=== PATIENT | male | born 1960 | race Hispanic/Latino ===

== ENCOUNTER 2020-09-14 14:27 | Inpatient (IN) | payer MEDICARE ==
[2020-09-14 15:18] LABS: Hemoglobin 6.1 g/dL (14.0-18.0); Mean Corpuscular Volume 55.2 fL (78.0-98.0); Red Blood Cell (RBC) Count 3.99 mill/uL (4.70-6.10); White Blood Cell (WBC) Count 9.5 thou/uL (4.8-10.8)
[2020-09-14 15:19] LABS: #Basophils 0.1 thou/uL (0.0-0.2); #Eosinphils 0.4 thou/uL (0.0-0.7); #Lymphocytes 1.8 thou/uL (1.20-3.40); #Monocytes 0.6 thou/uL (0.11-0.59); #Neutrophils 6.6 thou/uL (1.40-6.50); %Eosinophils 4.2 % (0.0-10.0); %Monocytes 6.3 % (0.0-10.0); %Neutrophils 69.4 % (42.0-75.0); Mean Corpuscular HGB CONC 27.9 g/dL (32.0-36.0); Mean Corpuscular Hemoglobin 15.4 pg (27.0-31.0); Mean Platelet Volume 6.4 fL (7.4-10.4); Platelet Count 551 thou/uL (130-400); RBC Distribution Width 21.2 % (11.5-14.5)
[2020-09-14 15:29] LABS: INR-International Normal Ratio 0.9; Prothrombin Time 12.7 sec (12.0-14.7)
[2020-09-14 15:30] LABS: PTT 29.7 sec (22.9-36.1)
[2020-09-14 15:35] LABS: ALT (SGPT) Less than 7 U/L (8-55); AST (SGOT) 12 U/L (5-34); Albumin 4.1 g/dL (3.5-5.0); Alkaline Phosphatase 99 U/L (40-110); Anion Gap 11 mmol/L (10-20); BUN (Urea Nitrogen) 12 mg/dL (8.4-25.7); Bilirubin, Total 0.6 mg/dL (0.2-1.2); Calc. Creatinine Clearance 0 mL/min (70-130); Calcium 9.1 mg/dL (7.8-10.44); Carbon Dioxide 26 mmol/L (22-29); Chloride 104 mmol/L (98-107); Globulin 3.8 g/dL (2.4-3.5); Glucose 146 mg/dL (70-105); Iron 10 ug/dL (65-175); Iron Binding Capacity, Total 444 mcg/dL (261-462); Potassium 4.1 mmol/L (3.5-5.1); Protein, Total 7.9 g/dL (6.0-8.3); Sodium 137 mmol/L (136-145)
[2020-09-14 15:40] LABS: Anisocytosis MODERATE=16-30 cells (100X) (0-5/hpf); Elliptocytes SLIGHT = 2-5 cells (100X) (0-1/hpf); Hypochromia MODERATE=16-30 cells (100X) (0-5/hpf); MDiff Complete? YES; Microcytosis MODERATE=15-30 cells (100X) (0-5/hpf); Ovalocytes MODERATE= 6-15 cells (100X) (0-1/hpf); Platelet Morphology Comment Appears Increased; Polychromasia MODERATE = 3-4 cells (100X) (0-2/hpf); Reflex for Review?? YES; Schistocytes SLIGHT = 2-5 cells (100X) (0-1/hpf); Target Cells SLIGHT = 2-5 cells (100X) (0-1/hpf); Tear Drops SLIGHT = 2-5 cells (100X) (0-1/hpf)
[2020-09-14] MEDS ORDERED: Acetaminophen 325 MG TAB PO PRN (18:07)
--- NOTE | 2020-09-14 19:32 | PDOC.HHP ---
Hospitalist HPI - History of Present Illness History of Present Illness: ADMISSION DATE: 09/14/2020 TIME OF ASSESSMENT: 1700 PRIMARY CARE PHYSICIAN: Petrona Narayanan CHIEF COMPLAINT: Low hemoglobin HPI: Patient is a 60-year-old male with past medical history significant for hemorrhoids, hypertension, diabetes. He presents to the ER today after it was discovered that he had a low hemoglobin during his annual physical with his physician. He does state that he has had bright red blood in his BMs lately. Patient also does state that he has felt a little weak and short of breath at times over the past few days. He denies any chest pain, melena, abdominal discomfort, fever, contact with sick persons. ED COURSE: Vital Signs: Blood pressure 115/65, pulse 85, respiratory 16, temp 98.6 oral, O2 saturation 100% on room air Today patient had lab work completed in the ER. He had no medications administered in the ER but he did start his blood transfusions. PAST MEDICAL HISTORY: CVA, diabetes type 2, hypertension, hemorrhoid, anxiety PAST SURGICAL HISTORY: None SOCIAL HISTORY: Patient lives at home with his mother. He denies any alcohol, tobacco, drug use. FAMILY HISTORY: Unknown ALLERGIES: No known allergies CURRENT MEDICATIONS: Metformin 1000 mg once a day Keppra 750 mg once a day Vitamin D3 Lisinopril 5 mg once a day Aspirin 81 mg once a day Gabapentin 300 mg 3 tabs, 1 in a.m. and 2 at bedtime Pantoprazole 40 mg daily Hospitalist ROS - Review of Systems Constitutional: reports: weakness Respiratory: reports: shortness of breath Gastrointestinal: reports: hematochezia All other systems reviewed; all pertinent +/- noted in HPI/Subj - Exam General Appearance: NAD, awake alert Heart: RRR, no murmur, no gallops, no rubs, normal peripheral pulses Respiratory: CTAB, no wheezes, no rales, no ronchi, normal chest expansion Gastrointestinal: soft, non-tender, non-distended, normal bowel sounds, no palpable masses Extremities: 1+ LE edema Hospitalist Results - Labs Result Diagrams: 09/14/20 15:03 09/14/20 15:03 Lab results: WBC 9.5 thou/uL (4.8-10.8) 09/14/20 15:03 Hgb 6.1 g/dL (14.0-18.0) L 09/14/20 15:03 Hct 22.0 % (42.0-52.0) L 09/14/20 15:03 MCV 55.2 fL (78.0-98.0) L 09/14/20 15:03 Plt Count 551 thou/uL (130-400) H 09/14/20 15:03 Neutrophils % 69.4 % (42.0-75.0) 09/14/20 15:03 Sodium 137 mmol/L (136-145) 09/14/20 15:03 Potassium 4.1 mmol/L (3.5-5.1) 09/14/20 15:03 Chloride 104 mmol/L (98-107) 09/14/20 15:03 Carbon Dioxide 26 mmol/L (22-29) 09/14/20 15:03 BUN 12 mg/dL (8.4-25.7) 09/14/20 15:03 Creatinine 0.83 mg/dL (0.7-1.3) 09/14/20 15:03 Glucose 146 mg/dL (70-105) H 09/14/20 15:03 Calcium 9.1 mg/dL (7.8-10.44) 09/14/20 15:03 Total Bilirubin 0.6 mg/dL (0.2-1.2) 09/14/20 15:03 AST 12 U/L (5-34) 09/14/20 15:03 ALT Less than 7 U/L (8-55) L 09/14/20 15:03 Alkaline Phosphatase 99 U/L (40-110) 09/14/20 15:03 Serum Total Protein 7.9 g/dL (6.0-8.3) 09/14/20 15:03 Albumin 4.1 g/dL (3.5-5.0) 09/14/20 15:03 Laboratory Tests 09/14/20 09/14/20 15:03 15:03 Iron 10 L TIBC 444 Ferritin 3.20 L Hospitalist H&P A/P - Plan Plan: Symptomatic anemia Transfuse 2 units PRBC GI consult in a.m.patient stated he had bright red blood in stools N.p.o. after midnight Hold ASA Diabetes mellitus type 2 Monitor Accu-Cheks AC at bedtime Mild sliding scale insulin Hypertension Restart home medications Monitor vital signs every 4 CODE STATUS: Full Surrogate decision-maker is his sister, Claudia
[2020-09-14] MEDS ORDERED: Dextrose 5% in Water 1,000 ML IV PRN (19:42)
[2020-09-14] MEDS ORDERED: Dextrose 50% Abboject 50 ML SYRINGE SLOW IVP PRN (19:42)
[2020-09-14 20:54] VITALS: BMI 25.7
[2020-09-15 00:59] LABS: Bacteria/HPF None Seen HPF (None Seen); Bilirubin Negative (Negative); Blood, Urine Negative (Negative); Clarity Clear (Clear); Glucose, Urine (Dipstick) Normal (Negative); Ketone, Urine Negative (Negative); Leukocyte Negative Leu/uL (Negative); Nitrite Negative (Negative); Protein, Urine (Dipstick) Negative (Neg-Trace); RBC/HPF 0-3 HPF (0-3); Specific Gravity, Urine 1.011 (1.002-1.036); Squamous Epithelial None Seen HPF (0-3); WBC/HPF 0-3 HPF (0-3); pH, Urine 6.5 (5.0-9.0)
[2020-09-15 03:37] LABS: SARS-CoV-2 MS2 Positive; SARS-CoV-2 N Gene Negative; SARS-CoV-2 S Gene Negative; SARS-CoV-2 by NAA Not Detected (NotDetected); SARS-CoV-2 orf1ab Negative
[2020-09-15 04:35] LABS: Anion Gap 13 mmol/L (10-20); BUN (Urea Nitrogen) 8 mg/dL (8.4-25.7); Calc. Creatinine Clearance 112 mL/min (70-130); Calcium 8.4 mg/dL (7.8-10.44); Carbon Dioxide 21 mmol/L (22-29); Chloride 105 mmol/L (98-107); Glucose 281 mg/dL (70-105); Potassium 4.3 mmol/L (3.5-5.1); Sodium 135 mmol/L (136-145)
[2020-09-15] MEDS: Pantoprazole 40 MG VIAL IVP SCH (08:25)
[2020-09-15 09:04] LABS: #Eosinphils 0.3 thou/uL (0.0-0.7); #Lymphocytes 1.4 thou/uL (1.20-3.40); #Monocytes 0.7 thou/uL (0.11-0.59); #Neutrophils 4.9 thou/uL (1.40-6.50); %Basophils 0.6 % (0.0-1.0); %Eosinophils 4.5 % (0.0-10.0); %Lymphocytes 19.4 % (21.0-51.0); %Monocytes 9.4 % (0.0-10.0); %Neutrophils 66.2 % (42.0-75.0); Anisocytosis MARKED = >30 cells (100X) (0-5/hpf); Hemoglobin 7.7 g/dL (14.0-18.0); Hypochromia MODERATE=16-30 cells (100X) (0-5/hpf); MDiff Complete? YES; Mean Corpuscular HGB CONC 28.5 g/dL (32.0-36.0); Mean Corpuscular Hemoglobin 18.1 pg (27.0-31.0); Mean Corpuscular Volume 63.8 fL (78.0-98.0); Mean Platelet Volume 5.6 fL (7.4-10.4); Microcytosis MODERATE=15-30 cells (100X) (0-5/hpf); Ovalocytes SLIGHT = 2-5 cells (100X) (0-1/hpf); Platelet Count 459 thou/uL (130-400); Poikilocytosis MODERATE=16-30 cells (100X) (0-5/hpf); RBC Distribution Width 30.3 % (11.5-14.5); Red Blood Cell (RBC) Count 4.23 mill/uL (4.70-6.10); White Blood Cell (WBC) Count 7.4 thou/uL (4.8-10.8)
[2020-09-15] MEDS: Sodium Chloride 0.9% 1,000 ML IV SCH ×2 (13:39→19:31)
--- NOTE | 2020-09-15 14:00 | PDOC.HOSPP ---
- Subjective Encounter Date: 09/15/20 (f/u sx anemia) Encounter Time: 13:58 Subjective: Pt c/o feeling hungry. He doesnt notice much difference after 2 units prbc. He denies any current problems. For about 3 months he has noticed blood in his stool and some abd pain. He fell recently and injured his left elbow - Mom reports it drains purulent fluid with last drainage 2 days ago. - Objective Vital Signs & Weight: Vital Signs (12 hours) Temp Pulse Resp BP BP BP Pulse Ox 09/15/20 11:02 97.5 F L 95 18 131/77 98 09/15/20 08:00 97.7 F 77 18 131/70 99 09/15/20 03:41 99.3 F 77 16 115/62 96 Weight Weight 164 lb I&O: 09/14/20 09/15/20 09/16/20 06:59 06:59 06:59 Intake Total 590 Output Total 500 Balance 90 Result Diagrams: 09/15/20 06:20 09/15/20 03:45 Additional Labs: Accuchecks 09/14/20 21:14 POC Glucose 136 H Hospitalist ROS - Medication Medications: Active Medications Generic Name Dose Route Start Last Admin Trade Name Freq PRN Reason Stop Dose Admin Sodium Chloride 1,000 mls @ 100 mls/hr 09/15/20 12:00 09/15/20 13:39 Normal Saline 0.9% IV 1,000 mls .Q10H GUS Administration Pantoprazole Sodium 40 mg 09/15/20 09:00 09/15/20 08:25 Pantoprazole 40 Mg Vial IVP 40 mg DAILY GUS Administration Sodium Chloride 10 ml 09/14/20 18:07 09/15/20 13:40 Flush - Normal Saline 10 Ml Syringe IVF 10 ml PRN PRN Administration Saline Flush - Exam General Appearance: NAD Heart: RRR, no murmur Respiratory: CTAB, no wheezes, no rales, no ronchi Gastrointestinal: soft, non-tender, non-distended, normal bowel sounds Extremities: no cyanosis, no clubbing Extremities - other findings: fluctuant protuberance left elbow Psychiatric: normal affect Hosp A/P (1) Symptomatic anemia Code(s): D64.9 - ANEMIA, UNSPECIFIED Status: Acute (2) GI bleed Code(s): K92.2 - GASTROINTESTINAL HEMORRHAGE, UNSPECIFIED Status: Suspected Qualifiers: GI bleed type/associated pathology: unspecified gastrointestinal hemorrhage type Qualified Code(s): K92.2 - Gastrointestinal hemorrhage, unspecified (3) Seizure disorder Code(s): G40.909 - EPILEPSY, UNSP, NOT INTRACTABLE, WITHOUT STATUS EPILEPTICUS Status: Chronic (4) Diabetes mellitus Code(s): E11.9 - TYPE 2 DIABETES MELLITUS WITHOUT COMPLICATIONS Status: Chronic (5) Swelling of left elbow Code(s): M25.422 - EFFUSION, LEFT ELBOW Status: Acute (6) Chronic pain Code(s): G89.29 - OTHER CHRONIC PAIN Status: Chronic Qualifiers: Chronic pain type: other chronic pain Qualified Code(s): G89.29 - Other chronic pain - Plan Concern of GI bleed - s/p 2 units prbc - GI consult Elbow swelling - check XR - check soft tissue US - does not appear acutely infected - hold abx for now Sx anemia - no indication for further blood at this time - recheck in AM. DM - controlled - hold metformin Seizure d/o - resume keppra Chronic pain - resume gabapentin dvt prophy - ambulatory gi prophy - continue IV protonix code status full reviewed plan of care with patient/Mom, no questions or further needs at end of eval as the patient requires an additional night in the hospital - EGD and colonoscopy tomorrow - will change to inpatient status as pt meets medicare criteria. Addendum - reviewed XR and no acute change. Reviewed US and complex fluid collection - eval for abscess. Will start IV rocephin and place consult for Ortho evaluation tomorrow given location.
--- NOTE | 2020-09-15 14:35 | CON ---
DATE OF CONSULTATION: 09/15/2020 CHIEF COMPLAINT: Anemia and blood in the stool. HISTORY OF PRESENT ILLNESS: Mr. Barnes is a 60-year-old man who has noticed red blood mixed with formed stool over the last several months. He did not tell his family about this to alert them to it. He went in for routine checkup at [facility], was found to have severe anemia and he was sent on to the emergency room for further care. His mom reports that he has had a decreased appetite for the last month and just picks his food and more. He has looked kind of pale over the last couple of months. He has had no nausea or vomiting. Sometimes gets some cramping pain in the right lower to periumbilical abdominal area before bowel movements, but that is not persistent, only lasts for a few minutes. He has lost 20 pounds over the last year. PAST MEDICAL HISTORY: Seizure disorder, stroke, diabetes mellitus type 2, hypertension. PAST SURGICAL HISTORY: Negative. FAMILY HISTORY: Negative for GI malignancy. His father had testicular cancer. SOCIAL HISTORY: No alcohol, tobacco, or drugs. He lives at home with his mother. ALLERGIES: NO KNOWN DRUG ALLERGIES. MEDICATIONS: Prior to admission include: 1. Metformin. 2. Keppra. 3. Vitamin D. 4. Lisinopril. 5. Aspirin. 6. Gabapentin. REVIEW OF SYSTEMS: Negative x10 systems reviewed except as stated in the history of present illness. PHYSICAL EXAMINATION: VITAL SIGNS: Temperature 97.5, pulse 95, blood pressure 131/77. GENERAL: He is in no acute distress. Alert and oriented x3. LUNGS: Clear to auscultation bilaterally. HEART: Regular rate and rhythm without murmur. ABDOMEN: Soft, nontender, and nondistended. Bowel sounds are present. EXTREMITIES: No lower extremity edema. Cranial nerves are grossly intact. LABORATORY DATA: White blood cell count 7.4, hemoglobin is 7.7 after two units of transfusion. His hemoglobin prior to that was 6.1. His MCV is 55, platelet count 459. INR 0.9. Creatinine 0.75. Ferritin is 3. IMPRESSION: 1. Iron deficiency anemia. 2. Hematochezia. 3. Poor appetite and 20-pound weight loss. RECOMMENDATIONS: EGD and colonoscopy tomorrow. Job ID: [id number]
[2020-09-15] MEDS ORDERED: GoLYTELY 4,000 ml Bottle PO SCH (16:00)
--- NOTE | 2020-09-15 16:17 | ULT ---
Exam: Limited soft tissue ultrasound HISTORY: Erythema and swelling of the left elbow. Comparison none TECHNIQUE: Targeted sonographic imaging of the region of concern was performed left elbow FINDINGS: There is heterogeneous echotexture in the soft tissues. Collection measures 1.9 x 0.6 x 2.0 cm. There are slightly thickened septi present. Complex/infected fluid collection is suspected. There appears be overlying soft tissue swelling. IMPRESSION: Probable complex fluid collection involving the soft tissues at the level of the left elb ow. Correlate clinically for abscess.
[2020-09-15] MEDS: Ferrous Sulfate 325 MG TAB PO SCH ×2 (16:50→17:02)
--- NOTE | 2020-09-15 17:06 | RAD ---
Exam:Left elbow 4 views HISTORY: Soft tissue swelling. Fall. Pain. COMPARISON: None FINDINGS: Targeted sonographic imaging of the left elbow soft tissues was performed. Refer to separat e report for further detail Joint spaces are preserved. No joint effusion. No fracture or malalignment. IMPRESSION: 1. No joint effusion. No fracture. 2. Soft tissue swelling. Refer to recent ultrasound for further detail.
[2020-09-15] MEDS: HumaLOG 300 UNITS/3 ML VIAL SC PRN (18:17)
[2020-09-15] MEDS: Gabapentin 300 MG CAP PO SCH (19:31)
[2020-09-15] MEDS: levETIRAcetam 500 MG TAB PO SCH (19:31)
[2020-09-15] MEDS: Rosuvastatin 5 MG TAB PO SCH (19:36)
[2020-09-15] MEDS: cefTRIAXone\\ROCEPHIN 2 GM in Sodium Chloride 0.9% 100 ML IVPB SCH (20:36)
[2020-09-16 04:34] LABS: Anion Gap 14 mmol/L (10-20); BUN (Urea Nitrogen) 6 mg/dL (8.4-25.7); Calc. Creatinine Clearance 120 mL/min (70-130); Calcium 8.5 mg/dL (7.8-10.44); Carbon Dioxide 23 mmol/L (22-29); Chloride 106 mmol/L (98-107); Glucose 111 mg/dL (70-105); Potassium 4.3 mmol/L (3.5-5.1); Sodium 139 mmol/L (136-145)
[2020-09-16 04:42] LABS: #Eosinphils 0.4 thou/uL (0.0-0.7); #Lymphocytes 1.9 thou/uL (1.20-3.40); #Monocytes 0.8 thou/uL (0.11-0.59); #Neutrophils 5.5 thou/uL (1.40-6.50); %Basophils 0.4 % (0.0-1.0); %Eosinophils 4.7 % (0.0-10.0); %Lymphocytes 21.6 % (21.0-51.0); %Monocytes 8.9 % (0.0-10.0); %Neutrophils 64.3 % (42.0-75.0); Hemoglobin 7.3 g/dL (14.0-18.0); MDiff Complete? YES; Mean Corpuscular HGB CONC 28.5 g/dL (32.0-36.0); Mean Corpuscular Hemoglobin 18.1 pg (27.0-31.0); Mean Corpuscular Volume 63.6 fL (78.0-98.0); Mean Platelet Volume 6.3 fL (7.4-10.4); Platelet Count 420 thou/uL (130-400); RBC Distribution Width 30.4 % (11.5-14.5); Red Blood Cell (RBC) Count 4.05 mill/uL (4.70-6.10); White Blood Cell (WBC) Count 8.6 thou/uL (4.8-10.8)
[2020-09-16 04:43] LABS: Anisocytosis MODERATE=16-30 cells (100X) (0-5/hpf); Elliptocytes SLIGHT = 2-5 cells (100X) (0-1/hpf); Hypochromia MODERATE=16-30 cells (100X) (0-5/hpf); Large Platelets SLIGHT; Microcytosis MODERATE=15-30 cells (100X) (0-5/hpf); Tear Drops SLIGHT = 2-5 cells (100X) (0-1/hpf)
[2020-09-16] MEDS ORDERED: PROPOFOL 200 MG/20 ML VIAL ONE (09:21)
[2020-09-16] MEDS ORDERED: Lidocaine 1% PF 5 ML VIAL ONE (09:21)
--- NOTE | 2020-09-16 09:24 | OP ---
DATE OF PROCEDURE: 09/16/2020 PROCEDURE PERFORMED: Esophagogastroduodenoscopy with biopsy and colonoscopy with biopsy. PREOPERATIVE DIAGNOSES: Iron deficiency anemia, hematochezia, and weight loss. DESCRIPTION OF PROCEDURE: Informed consent was obtained from the patient. He was sedated with total intravenous anesthesia. The bite block was placed and the endoscope was advanced easily to the second portion of the duodenum and retroflexion was performed in the stomach. The esophagus was normal. The GE junction was normal. The stomach had mild erythematous gastritis in the antrum, which was biopsied to rule out Helicobacter pylori. Retroflexed views in the stomach were normal. The first and second portions of the duodenum were normal overall. They were slightly edematous appearing. Biopsies were obtained to rule out celiac disease. The patient was turned around. Rectal exam was performed and was normal. Preparation quality was adequate. The colonoscope was advanced to the cecum, where the ileocecal valve and appendiceal orifice were clearly identified. There was a large mass in the ascending colon. This was only one-half circumferential, however, it extended several centimeters. Multiple biopsies were obtained. The remainder of the colonic mucosa was normal. Retroflexed views in the rectum were normal. IMPRESSION: 1. Erythematous gastritis, biopsied to rule out Helicobacter pylori. 2. Otherwise normal EGD. Duodenal biopsies taken to rule out celiac disease. 3. Ascending colon mass consistent with malignant tumor. Biopsies obtained. 4. Otherwise normal colonoscopy. RECOMMENDATIONS: 1. Await histopathology. 2. Surgical consultation for right hemicolectomy. 3. Outpatient Oncology referral. 4. Repeat colonoscopy in [address] scan of the chest, abdomen, and pelvis. 6. Check CEA. Job ID: [id number]
[2020-09-16] MEDS: levETIRAcetam 500 MG TAB PO SCH ×2 (09:42→20:04)
[2020-09-16] MEDS: DULoxetine 60 MG CAP PO SCH (09:43)
[2020-09-16] MEDS: Ferrous Sulfate 325 MG TAB PO SCH ×2 (09:43→17:31)
[2020-09-16] MEDS: Gabapentin 300 MG CAP PO SCH ×2 (09:43→20:05)
[2020-09-16] MEDS: Pantoprazole 40 MG VIAL IVP SCH (09:43)
[2020-09-16] MEDS ORDERED: Iopamidol-370 76% 500 ML 1 ML ONE (11:44)
--- NOTE | 2020-09-16 12:57 | CON ---
DATE OF CONSULTATION: 09/16/2020 HISTORY OF PRESENT ILLNESS: Mr. Barnes is a 60-year-old male with past medical history of hypertension, diabetes, history of a CVA, anxiety. The patient is currently being under work by Dr. Roe Dean for upper versus lower GI bleed. The patient was noted to have bright red blood in his bowel movements. The patient also was complaining of left elbow pain, which he states its onset about 2 weeks, some swelling and pain over that time. PAST MEDICAL HISTORY: CVA, diabetes, hypertension, hemorrhoids, anxiety. PAST SURGICAL HISTORY: Now colonoscopy/EGD. MEDICATIONS: 1. Metformin. 2. Keppra. 3. Vitamin D. 4. Lisinopril. 5. Aspirin. 6. Gabapentin. 7. Pantoprazole. ALLERGIES: NO KNOWN DRUG ALLERGIES. SOCIAL HISTORY: The patient lives at home with his mother. Denies illicit drug use. REVIEW OF SYSTEMS: Negative for 10-point review except for positive blood per rectum, shortness of breath, and weakness. Otherwise, negative. PHYSICAL EXAMINATION: VITAL SIGNS: Today, temperature 97.8, pulse 92, respirations 18, oxygen saturation 100% on room air, blood pressure 139/83. GENERAL: Alert and oriented male, in no acute distress, resting comfortably in bed. EXTREMITIES: Left lower extremity shows some erythema over the elbow with tenderness to palpation, a boggy bursa without obvious pointing abscess or fluid collection. Full range of motion. Stable joint. No large effusion. Neurovascularly intact in left upper extremity. LABORATORY DATA: The patient's white count is currently 8.6. He is anemic at 7.3 and 25.7. He is COVID negative. ESR and CRP are pending. Elbow x-ray showed no acute fracture. Ultrasound of the left elbow shows complex fluid collection at the level of the elbow. IMPRESSION: Left olecranon bursitis versus septic bursitis. ASSESSMENT AND PLAN: Recommend warm compresses, range of motion, IV antibiotics, will be transitioned to oral antibiotics. If the patient has a pointing abscess that does not resolve, then we will proceed with an I and D. The patient will be followed inhouse for resolution of his anemia. Job ID: [id number]
--- NOTE | 2020-09-16 13:55 | PDOC.HOSPP ---
- Subjective Encounter Date: 09/16/20 (f/u sx anemia) Encounter Time: 13:52 Subjective: Pt reports the left sided pain continues in arm and leg- it's been ongoing at home and started after a fall. He denies any new sx. Majo feeling lightheaded/dizzy/chest pain/n/v/abd pain. - Objective Vital Signs & Weight: Vital Signs (12 hours) Temp Pulse Resp BP BP Pulse Ox 09/16/20 09:35 97.9 F 58 L 16 124/64 100 09/16/20 07:14 97.8 F 92 18 139/83 100 Weight Weight 164 lb I&O: 09/15/20 09/16/20 09/17/20 06:59 06:59 06:59 Intake Total 590 5270 Output Total 500 Balance 90 5270 Result Diagrams: 09/16/20 03:44 09/16/20 03:44 Additional Labs: Accuchecks 09/16/20 09/15/20 09/15/20 11:19 19:35 15:53 POC Glucose 88 104 H 219 H Hospitalist ROS - Medication Medications: Active Medications Generic Name Dose Route Start Last Admin Trade Name Freq PRN Reason Stop Dose Admin Duloxetine HCl 60 mg 09/16/20 09:00 09/16/20 09:43 Duloxetine 60 Mg Cap PO 60 mg DAILY GUS Administration Ferrous Sulfate 325 mg 09/15/20 08:00 09/16/20 09:43 Ferrous Sulfate 325 Mg Tab PO 325 mg BID-WM GUS Administration Gabapentin 300 mg 09/16/20 09:00 09/16/20 09:43 Gabapentin 300 Mg Cap PO 300 mg QAM GUS Administration Gabapentin 600 mg 09/15/20 21:00 09/15/20 19:31 Gabapentin 300 Mg Cap PO 600 mg HS GUS Administration Ceftriaxone Sodium 2 gm/ 100 mls @ 200 mls/hr 09/15/20 21:00 09/15/20 20:36 Sodium Chloride IVPB 100 mls 2100 GUS Administration Insulin Human Lispro 0 units 09/14/20 19:42 09/15/20 18:17 Humalog 300 Units/3 Ml Vial SC 3 units .MILD SLIDING SCALE PRN Administration Mild Correctional Scale Levetiracetam 750 mg 09/15/20 21:00 09/16/20 09:42 Levetiracetam 500 Mg Tab PO 750 mg BID GUS Administration Pantoprazole Sodium 40 mg 09/15/20 09:00 09/16/20 09:43 Pantoprazole 40 Mg Vial IVP 40 mg DAILY GUS Administration Rosuvastatin Calcium 5 mg 09/15/20 21:00 09/15/20 19:36 Rosuvastatin 5 Mg Tab PO 5 mg HS GUS Administration Sodium Chloride 10 ml 09/14/20 18:07 09/15/20 13:40 Flush - Normal Saline 10 Ml Syringe IVF 10 ml PRN PRN Administration Saline Flush - Exam General Appearance: NAD Heart: RRR, no murmur Respiratory: CTAB, no wheezes, no rales, no ronchi Gastrointestinal: soft, non-tender, non-distended, normal bowel sounds Extremities: no cyanosis, no clubbing, no edema Extremities - other findings: fluctuant area overlying left elbow - unchanged Psychiatric: normal affect Hosp A/P (1) Symptomatic anemia Code(s): D64.9 - ANEMIA, UNSPECIFIED Status: Acute (2) GI bleed Code(s): K92.2 - GASTROINTESTINAL HEMORRHAGE, UNSPECIFIED Status: Suspected Qualifiers: GI bleed type/associated pathology: unspecified gastrointestinal hemorrhage type Qualified Code(s): K92.2 - Gastrointestinal hemorrhage, unspecified (3) Seizure disorder Code(s): G40.909 - EPILEPSY, UNSP, NOT INTRACTABLE, WITHOUT STATUS EPILEPTICUS Status: Chronic (4) Diabetes mellitus Code(s): E11.9 - TYPE 2 DIABETES MELLITUS WITHOUT COMPLICATIONS Status: Chronic (5) Swelling of left elbow Code(s): M25.422 - EFFUSION, LEFT ELBOW Status: Acute (6) Chronic pain Code(s): G89.29 - OTHER CHRONIC PAIN Status: Chronic Qualifiers: Chronic pain type: other chronic pain Qualified Code(s): G89.29 - Other chronic pain - Plan s/p EGD and colonoscopy with right colon mass concerning for malignancy, and gastritis - appreciate GI consult - continue IV protonix for now - consult to Gen Surgery for consideration of right hemicolectomy - bx obtained and CEA ordered Elbow swelling - appreciate Ortho eval - conservative management - warm compresses, IV antibiotics - neg XR for bone involvement Sx anemia s/p 2 units prbc - no indication for further blood at this time DM - controlled - hold metformin for now Seizure d/o - continue keppra Chronic pain - continue gabapentin dvt prophy - ambulatory gi prophy - continue IV protonix code status full reviewed plan of care with patient/sister, no questions or further needs at end of eval
[2020-09-16] MEDS: Sodium Chloride 0.9% 1,000 ML IV SCH (14:07)
[2020-09-16] MEDS ORDERED: cefOXitin Sodium/Dextrose,Iso 2 GM in Premix Bag 1 BAG IVPB SCH (16:45)
[2020-09-16] MEDS: cefTRIAXone\\ROCEPHIN 2 GM in Sodium Chloride 0.9% 100 ML IVPB SCH (20:04)
[2020-09-16] MEDS: Rosuvastatin 5 MG TAB PO SCH (20:04)
--- NOTE | 2020-09-16 21:24 | CON ---
DATE OF CONSULTATION: 09/16/2020 CHIEF COMPLAINT: Rectal bleeding and anemia with colon mass. HISTORY OF PRESENT ILLNESS: The patient is a 60-year-old male with a 6-month history of intermittent rectal bleeding. He had a colonoscopy about 10 years ago. He was admitted and a colonoscopy today revealed a large mass in his right colon consistent with colon cancer. He has no family history of colon cancer. No abdominal pain. PAST MEDICAL HISTORY: Significant for seizure disorder. He has had a history of a CVA. He is diabetic. He has hypertension. PAST SURGICAL HISTORY: None. MEDICATIONS: 1. Gabapentin. 2. Cymbalta. 3. Aspirin. 4. Iron. 5. Keppra. 6. Lisinopril. 7. Metformin. 8. Crestor. SOCIAL HISTORY: Lives with his mother. He is unemployed. No tobacco or alcohol. FAMILY HISTORY: Diabetes and stomach cancer. PHYSICAL EXAMINATION: VITAL SIGNS: Temperature 97.9, pulse 58, blood pressure 124/64. GENERAL: He seems a little slow mentally, but he is awake and alert. LUNGS: Clear. HEART: Regular rate and rhythm. ABDOMEN: Soft, nondistended. No tenderness or palpable masses. EXTREMITIES: Unremarkable. LABORATORY DATA: His white count is 8.6, H and H of 7 and 25, platelet count of 420,000. Electrolytes are fine. Blood bank, he has had 2 units transfused. PLAN: Laparoscopic right hemicolectomy. CONSENT: I have discussed planned procedure with him and his sister. They understand it as well as risk of bleeding, infection, injury to bowel, leakage from anastomosis, and gave their informed consent. Job ID: [id number]
[2020-09-17 04:11] LABS: Prothrombin Time 13.5 sec (12.0-14.7)
[2020-09-17 04:33] LABS: ALT (SGPT) 7 U/L (8-55); AST (SGOT) 18 U/L (5-34); Albumin 3.5 g/dL (3.5-5.0); Alkaline Phosphatase 79 U/L (40-110); Anion Gap 12 mmol/L (10-20); BUN (Urea Nitrogen) 5 mg/dL (8.4-25.7); Bilirubin, Total 0.7 mg/dL (0.2-1.2); Calc. Creatinine Clearance 112 mL/min (70-130); Calcium 8.9 mg/dL (7.8-10.44); Carbon Dioxide 25 mmol/L (22-29); Chloride 104 mmol/L (98-107); Globulin 3.4 g/dL (2.4-3.5); Glucose 112 mg/dL (70-105); Potassium 3.9 mmol/L (3.5-5.1); Protein, Total 6.9 g/dL (6.0-8.3); Sodium 137 mmol/L (136-145)
[2020-09-17 06:17] LABS: #Eosinphils 0.4 thou/uL (0.0-0.7); #Lymphocytes 1.9 thou/uL (1.20-3.40); #Monocytes 0.7 thou/uL (0.11-0.59); #Neutrophils 4.2 thou/uL (1.40-6.50); %Basophils 0.2 % (0.0-1.0); %Eosinophils 5.9 % (0.0-10.0); %Lymphocytes 26.4 % (21.0-51.0); %Monocytes 9.1 % (0.0-10.0); %Neutrophils 58.3 % (42.0-75.0); Anisocytosis MODERATE=16-30 cells (100X) (0-5/hpf); Elliptocytes SLIGHT = 2-5 cells (100X) (0-1/hpf); Hemoglobin 7.9 g/dL (14.0-18.0); Hypochromia MODERATE=16-30 cells (100X) (0-5/hpf); MDiff Complete? YES; Mean Corpuscular HGB CONC 29.6 g/dL (32.0-36.0); Mean Corpuscular Hemoglobin 18.6 pg (27.0-31.0); Mean Corpuscular Volume 62.8 fL (78.0-98.0); Mean Platelet Volume 6.5 fL (7.4-10.4); Platelet Count 418 thou/uL (130-400); RBC Distribution Width 30.6 % (11.5-14.5); Red Blood Cell (RBC) Count 4.25 mill/uL (4.70-6.10); White Blood Cell (WBC) Count 7.1 thou/uL (4.8-10.8)
--- NOTE | 2020-09-17 08:12 | CT ---
CT OF THE CHEST, ABDOMEN AND PELVIS WITH IV CONTRAST INDICATION: 60-year-old male with history of ascending colon cancer with low blood counts COMPARISON: CT the abdomen and pelvis without contrast from [facility] dated August 28, 2011 FINDINGS: The examination was performed on September 16, 2020 at 12:25 PM. The examination was submitte d for interpretation on September 17, 2020 at 8:00 AM. CHEST: Lungs: There are sub-4 mm reticulonodular opacities within the right lung apex on image 9 of series 3 . No suspicious pulmonary nodule is identified. Pleural space: No effusion. Mediastinum: There is mild focal aneurysmal dilatation the proximal descending thoracic aorta measuri ng 3.3 cm. There are mild vascular calcifications involving the thoracic aorta. Axilla: No pathologically enlarged lymph nodes. ABDOMEN: Liver: There is a 3 mm hypodensity within segment 8 of the right hepatic lobe that is difficult bishnu cterize due to size. No additional focal hepatic lesion is evident. Gallbladder: Normal appearing. Pancreas: Normal. Adrenal glands: Normal. Spleen: Mildly prominent measuring 12.7 cm Kidneys and ureters: There is a 1 cm cyst involving the superior pole right kidney. Left kidney is no rmal-appearing. Vasculature: There are mild vascular calcifications seen involving the visualized vasculature. Lymph nodes:No lymphadenopathy. Free fluid in abdomen:No free fluid is evident. PELVIS: Small and large bowel: There is eccentric hyperdensity seen within the sigmoid rectal junction which may reflect retained fecal material; however, a concentric mass is not excluded. There is an asymmetric wall thickening involving the ascending colon on image 73 of series 2 and image 69 of the coronal series likely corresponding to patient's known ascending colon malignancy. There are a few mildly prominent lymph nodes seen within the mesentery adjacent to the ascending colon one of the mor e prominent is seen on image 71 of series 2 measuring 9 mm. No pathologically enlarged lymph nodes are evident. Appendix:Normal Bladder: Normal. Rectal and perirectal soft tissues:Normal. Reproductive structures: Normal. Free fluid in pelvis: No free fluid is evident. Lymphadenopathy pelvis: No lymphadenopathy is evident. Osseous structures: There is a benign-appearing hemangioma within L4. There is a healing right latera l sixth rib fracture. No suspicious osteolytic or osteoblastic lesion is identified. There is scattered degenerative and osteoarthritic changes. Soft tissues:There are bilateral fat-containing inguinal hernias. IMPRESSION: 1. Asymmetric wall mass involving the anterior and medial wall of the ascending colon consistent with the patient's known colonic malignancy. There is also slight eccentric hyperdensity at the sigmoid rectal junction which is likely related to fecal material; however, an additional mass is not exclude d. A few mildly prominent, nonpathologically enlarged lymph nodes, are seen within the mesentery adjacent to the ascending colonic mass. 2. 3 mm hypodensity within segment 8 of the right hepatic lobe is difficult characterize due to its s ize. The liver was not evaluated within this region on the comparison examination limiting comparison to document stability. This may reflect a very tiny cyst. Continued CT follow-up is recomm ended. 3. No overt evidence to suggest metastatic disease in the chest. There is a small grouping of reticul ar nodular opacities within the right lung apex that are suspicious for small focus of bronchiolitis. Continued CT follow-up is recommended. 4. Mild aneurysmal dilatation the proximal descending thoracic aorta measuring up to 3.3 cm. # 5. Right renal cyst. 6. Healing right lateral sixth rib fracture. No suspicious osseous lesion identified. Benign-appearin g bony hemangioma is seen within the L4 vertebra, stable to the prior exam.
[2020-09-17] MEDS: Gabapentin 300 MG CAP PO SCH ×2 (09:00→20:48)
[2020-09-17] MEDS: Pantoprazole 40 MG VIAL IVP SCH (09:01)
[2020-09-17] MEDS: DULoxetine 60 MG CAP PO SCH (09:01)
[2020-09-17] MEDS: levETIRAcetam 500 MG TAB PO SCH ×2 (09:01→20:48)
[2020-09-17] MEDS: Ferrous Sulfate 325 MG TAB PO SCH ×2 (09:01→17:42)
[2020-09-17] MEDS ORDERED: cefOXitin Sodium/Dextrose 2 GM/50 ML BAG ONE (10:00)
[2020-09-17] MEDS ORDERED: Rocuronium Bromide 10 MG/ML (10ML VIAL) ONE (10:26)
[2020-09-17] MEDS ORDERED: Glycopyrrolate 0.2 MG/ML 5 ML SYRINGE ONE (10:26)
[2020-09-17] MEDS ORDERED: PHENYLEPHRINE-NS 100 MCG/ML 10 ML SYRINGE ONE (10:26)
[2020-09-17] MEDS ORDERED: PROPOFOL 200 MG/20 ML VIAL ONE (10:26)
[2020-09-17] MEDS ORDERED: Dexamethasone 20 MG/5 ML VIAL ONE (10:26)
[2020-09-17] MEDS ORDERED: Ondansetron PF 4 MG/2 ML Vial ONE (10:26)
[2020-09-17] MEDS ORDERED: Lidocaine 1% PF 5 ML VIAL ONE (10:26)
[2020-09-17] MEDS ORDERED: Bupivacaine 0.25% HCL 30 ML VIAL ONE (10:36)
[2020-09-17] MEDS ORDERED: Lidocaine 1% w/Epinephrine 1:100K 20 ML VIAL ONE (10:36)
[2020-09-17] MEDS ORDERED: Fentanyl 100 MCG/2 ML VIAL ONE ×4 (10:41→13:50)
--- NOTE | 2020-09-17 11:14 | PRG ---
DATE OF SERVICE: 09/17/2020 SUBJECTIVE: Mr. Barnes is a 60-year-old male with acute GI bleed. Also noticed olecranon bursitis. The patient is symptomatically improving, resting comfortably in bed. The patient is afebrile. OBJECTIVE: VITAL SIGNS: Stable. GENERAL: Alert male, in no acute distress. EXTREMITIES: Left upper extremity shows decreased swelling, erythema. No ecchymosis, swelling in soft tissue, boggy bursa. LABORATORY DATA: ESR 60, CRP is elevated. IMPRESSION: Left septic olecranon bursitis. ASSESSMENT AND PLAN: The patient will continue warm compresses, IV antibiotics, transition to p.o. antibiotics. He will need to follow up in my clinic in 2 weeks after resolution of acute GI bleed. Job ID: [id number] [facility]
[2020-09-17] MEDS ORDERED: hydrALAZINE 20 MG/ML VIAL SLOW IVP PRN (12:38)
[2020-09-17] MEDS ORDERED: Promethazine HCl 25 MG/ML VIAL IM PRN ×2 (12:38→12:50)
[2020-09-17] MEDS ORDERED: Ondansetron PF 4 MG/2 ML Vial IVP PRN (12:38)
[2020-09-17] MEDS ORDERED: HYDROmorphone 2 MG/ML VIAL SLOW IVP PRN (12:50)
[2020-09-17] MEDS ORDERED: Ondansetron HCl/PF 4 MG/2 ML Vial IVP PRN (12:50)
[2020-09-17] MEDS ORDERED: Promethazine HCl 25 MG/ML VIAL SLOW IVP PRN (12:50)
--- NOTE | 2020-09-17 13:39 | PRG ---
DATE OF SERVICE: 09/17/2020 SUBJECTIVE: The patient is immediately postoperative in the PACU after right hemicolectomy. OBJECTIVE: VITAL SIGNS: He is afebrile. GENERAL: No acute distress. LABORATORY DATA: Hemoglobin is 7.9. CEA 0.75. IMPRESSION: Ascending colon cancer. Status post surgical resection of the right hemicolectomy today. RECOMMENDATIONS: 1. Await histopathology. 2. Outpatient Oncology followup. 3. Repeat colonoscopy in a year. 4. I will sign off. Please call if GI can be of assistance. Job ID: [id number]
--- NOTE | 2020-09-17 16:13 | PDOC.HOSPP ---
- Subjective Encounter Date: 09/17/20 (f/u sx anemia) Encounter Time: 16:11 Subjective: 60 y/o male admitted for sx anemia s/p 2 units transfusion. He underwent colonoscopy that identified a right colon mass and is now s/p right hemicolectomy today. 2nd issue -left olecranon bursitis vs septic bursitis. Has been evaluated by Ortho -> conservative management with warm compresses, IV antibiotics. Pt is s/p surgery today. He wakes and answers questions and easily falls back to sleep. He reports feeling sore but no other concerns. - Objective Vital Signs & Weight: Vital Signs (12 hours) Temp Pulse Resp BP Pulse Ox 09/17/20 08:00 98.5 F 80 18 128/74 98 Weight Weight 164 lb I&O: 09/16/20 09/17/20 09/18/20 06:59 06:59 06:59 Intake Total 5270 2160 Balance 5270 2160 Result Diagrams: 09/17/20 03:43 09/17/20 03:43 Additional Labs: Accuchecks 09/17/20 09/17/20 09/16/20 13:05 11:27 20:38 POC Glucose 144 H 106 H 102 H 09/16/20 09/15/20 16:33 11:01 POC Glucose 114 H 100 Hospitalist ROS - Medication Medications: Active Medications Generic Name Dose Route Start Last Admin Trade Name Markoq PRN Reason Stop Dose Admin Duloxetine HCl 60 mg 09/16/20 09:00 09/17/20 09:01 Duloxetine 60 Mg Cap PO 60 mg DAILY GUS Administration Ferrous Sulfate 325 mg 09/15/20 08:00 09/17/20 09:01 Ferrous Sulfate 325 Mg Tab PO 325 mg BID-WM GUS Administration Gabapentin 300 mg 09/16/20 09:00 09/17/20 09:00 Gabapentin 300 Mg Cap PO 300 mg QAM GUS Administration Gabapentin 600 mg 09/15/20 21:00 09/16/20 20:05 Gabapentin 300 Mg Cap PO 600 mg HS GUS Administration Ceftriaxone Sodium 2 gm/ 100 mls @ 200 mls/hr 09/15/20 21:00 09/16/20 20:04 Sodium Chloride IVPB 100 mls 2100 GUS Administration Insulin Human Lispro 0 units 09/14/20 19:42 09/15/20 18:17 Humalog 300 Units/3 Ml Vial SC 3 units .MILD SLIDING SCALE PRN Administration Mild Correctional Scale Levetiracetam 750 mg 09/15/20 21:00 09/17/20 09:01 Levetiracetam 500 Mg Tab PO 750 mg BID GUS Administration Pantoprazole Sodium 40 mg 09/15/20 09:00 09/17/20 09:01 Pantoprazole 40 Mg Vial IVP 40 mg DAILY GUS Administration Rosuvastatin Calcium 5 mg 09/15/20 21:00 09/16/20 20:04 Rosuvastatin 5 Mg Tab PO 5 mg HS GUS Administration - Exam General Appearance: NAD Heart: RRR, no murmur Respiratory: CTAB, no wheezes, no rales, no ronchi Gastrointestinal: soft, non-distended Gastrointestinal - other findings: hypoactive bowel sounds Extremities: no cyanosis, no clubbing, no edema Hosp A/P (1) Symptomatic anemia Code(s): D64.9 - ANEMIA, UNSPECIFIED Status: Acute (2) GI bleed Code(s): K92.2 - GASTROINTESTINAL HEMORRHAGE, UNSPECIFIED Status: Suspected Qualifiers: GI bleed type/associated pathology: unspecified gastrointestinal hemorrhage type Qualified Code(s): K92.2 - Gastrointestinal hemorrhage, unspecified (3) Seizure disorder Code(s): G40.909 - EPILEPSY, UNSP, NOT INTRACTABLE, WITHOUT STATUS EPILEPTICUS Status: Chronic (4) Diabetes mellitus Code(s): E11.9 - TYPE 2 DIABETES MELLITUS WITHOUT COMPLICATIONS Status: Chronic (5) Swelling of left elbow Code(s): M25.422 - EFFUSION, LEFT ELBOW Status: Acute (6) Chronic pain Code(s): G89.29 - OTHER CHRONIC PAIN Status: Chronic Qualifiers: Chronic pain type: other chronic pain Qualified Code(s): G89.29 - Other chronic pain (7) Mass of colon Code(s): K63.89 - OTHER SPECIFIED DISEASES OF INTESTINE Status: Acute - Plan s/p EGD and colonoscopy with right colon mass concerning for malignancy, and gastritis now s/p right hemicolectomy - Appreciate Gen Surg tx - Appreciate GI dx, now signed off. F/u colonoscopy in 1 year - Oncology consult Elbow swelling - olecranon bursitis vs septic bursitis - appreciate Ortho eval - conservative management - warm compresses, IV antibiotics now and transition to oral at discharge - neg XR for bone involvement Sx anemia s/p 2 units prbc on admission - no indication for further blood at this time DM - controlled Seizure d/o - continue keppra Chronic pain - continue gabapentin dvt prophy - ambulatory gi prophy - continue IV protonix code status full reviewed plan of care with patient/sister, no questions or further needs at end of eval
[2020-09-17] MEDS: Sodium Chloride 0.9% 1,000 ML IV SCH ×2 (17:41→20:50)
--- NOTE | 2020-09-17 17:54 | OP ---
DATE OF PROCEDURE: 09/17/2020 PREOPERATIVE DIAGNOSIS: Right colon cancer. PROCEDURE PERFORMED: Laparoscopic hand-assisted right hemicolectomy. INDICATIONS: This is a 60-year-old male, who came in with severe blood loss anemia and rectal bleeding. A colonoscopy revealed a near circumferential mass in the right colon. FINDINGS: 6 cm mass, right colon. DESCRIPTION OF PROCEDURE: After informed consent was obtained, the patient was taken to the operating room and given general endotracheal anesthesia, was placed in the supine position. His abdomen was prepped and draped in usual fashion. Local anesthesia was infiltrated subcutaneously and deep. A 5-mm incision was performed in left upper quadrant and a Veress needle inserted. Drop test performed. Pneumoperitoneum was created to a volume of 2 L of carbon dioxide. Using a bladeless 5-mm trocar and 0-degree laparoscope, direct visual entry in the abdominal cavity was performed. Pneumoperitoneum was then created to a pressure of 15 mmHg. Under direct vision, two other 5 mm ports were placed, one in the left lower quadrant and the right lower quadrant. The right colon was mobilized along the white line of Toldt as well as the ileum and appendix, then another 5-mm port was placed in the right upper quadrant, which allowed for mobilization of the hepatic flexure. There was really no tattooing seen. A hand-assisted port was placed in the upper midline and I was able to feel the mass. Then, the right colon was delivered through the port site in the midline. The transverse colon was divided utilizing a CECILY 75. The ileum was divided with the CECILY 75. The mesentery divided with the LigaSure. The right colic vessels were divided between clamps and tied with a 2-0 silk stick tie. The specimen was sent to Pathology for further analysis. Hemostasis was assured. A [id number] functional end-to-end pro-peristaltic stapled anastomosis was performed. An enterotomy performed in the ileum approximately 10 cm from the staple line, then an enterotomy was performed in the transverse colon. The CECILY was inserted, one limb in each limb of bowel, closed, fired. The common enterotomy closed transversely with a running 3-0 PDS V-Loc. The mesentery was closed with interrupted 3-0 Vicryl. The bowel was placed intra-abdominally. The gloves were changed. The abdomen was re-insufflated and irrigated. Hemostasis was assured. The irrigation fluid removed. Trocars and retractors removed. The hand assisted port removed. The fascia closed with interrupted [id number] of #1 PDS. The subcu irrigated. Skin closed with interrupted 4-0 Rapide. Dermabond applied. The patient tolerated the procedure well, transferred to Recovery in good condition. Sponge and needle count verified correct x2. Job ID: [id number]
[2020-09-17] MEDS: Ketorolac Tromethamine 30 MG/ML VIAL IVP SCH ×2 (18:12→23:49)
[2020-09-17] MEDS: cefOXitin Sodium/Dextrose,Iso 2 GM in Premix Bag 1 BAG IVPB SCH (18:13)
[2020-09-17] MEDS: cefTRIAXone\\ROCEPHIN 2 GM in Sodium Chloride 0.9% 100 ML IVPB SCH (20:47)
[2020-09-17] MEDS: Famotidine 20 MG TAB PO SCH (20:47)
[2020-09-17] MEDS: Rosuvastatin 5 MG TAB PO SCH (20:48)
[2020-09-17] MEDS: Famotidine/PF 20 mg/2ml Vial SLOW IVP SCH (20:50)
[2020-09-18] MEDS: cefOXitin Sodium/Dextrose,Iso 2 GM in Premix Bag 1 BAG IVPB SCH (01:36)
[2020-09-18 04:36] LABS: #Lymphocytes 1.1 thou/uL (1.20-3.40); #Neutrophils 10.2 thou/uL (1.40-6.50); %Basophils 0.1 % (0.0-1.0); %Eosinophils 0.1 % (0.0-10.0); %Lymphocytes 8.7 % (21.0-51.0); %Neutrophils 83.1 % (42.0-75.0); Hemoglobin 7.8 g/dL (14.0-18.0); Mean Corpuscular HGB CONC 29.1 g/dL (32.0-36.0); Mean Corpuscular Hemoglobin 18.8 pg (27.0-31.0); Mean Corpuscular Volume 64.7 fL (78.0-98.0); Mean Platelet Volume 6.1 fL (7.4-10.4); Platelet Count 427 thou/uL (130-400); RBC Distribution Width 30.6 % (11.5-14.5); Red Blood Cell (RBC) Count 4.12 mill/uL (4.70-6.10); White Blood Cell (WBC) Count 12.2 thou/uL (4.8-10.8)
[2020-09-18 04:45] LABS: Anion Gap 14 mmol/L (10-20); BUN (Urea Nitrogen) 8 mg/dL (8.4-25.7); Calc. Creatinine Clearance 106 mL/min (70-130); Calcium 8.6 mg/dL (7.8-10.44); Carbon Dioxide 22 mmol/L (22-29); Chloride 101 mmol/L (98-107); Glucose 126 mg/dL (70-105); Potassium 4.3 mmol/L (3.5-5.1); Sodium 133 mmol/L (136-145)
[2020-09-18] MEDS: Ketorolac Tromethamine 30 MG/ML VIAL IVP SCH ×4 (05:55→23:16)
[2020-09-18] MEDS: Sodium Chloride 0.9% 1,000 ML IV SCH ×3 (05:56→23:18)
[2020-09-18] MEDS: Ferrous Sulfate 325 MG TAB PO SCH ×2 (07:47→18:04)
[2020-09-18] MEDS: DULoxetine 60 MG CAP PO SCH (07:48)
[2020-09-18] MEDS: Famotidine/PF 20 mg/2ml Vial SLOW IVP SCH ×2 (07:48→20:41)
[2020-09-18] MEDS: Famotidine 20 MG TAB PO SCH ×2 (07:52→20:39)
[2020-09-18] MEDS: Gabapentin 300 MG CAP PO SCH ×2 (07:53→20:39)
[2020-09-18] MEDS: levETIRAcetam 500 MG TAB PO SCH ×2 (07:53→20:39)
[2020-09-18] MEDS: Pantoprazole 40 MG VIAL IVP SCH (07:58)
--- NOTE | 2020-09-18 08:42 | PRG ---
DATE OF SERVICE: 09/18/2020 SUBJECTIVE: Patient is doing well. Pain is well controlled. No nausea, no flatus. OBJECTIVE: On exam; he is awake, alert. On exam, his temperature is 98.2, pulse 86, blood pressure 132/75. His abdomen is soft, nondistended. The incisions are healing well. There is no evidence of infection. ASSESSMENT: Doing well. PLAN: Discontinue Barber. Ambulate. Job ID: [id number]
[2020-09-18] MEDS: Enoxaparin Sodium 40 MG/0.4 ML SYRINGE SC SCH (09:08)
[2020-09-18] MEDS ORDERED: Iron Sucrose Complex 100 MG in Sodium Chloride 0.9% 100 ML IVPB SCH (09:15)
--- NOTE | 2020-09-18 10:14 | PDOC.HOSPP ---
- Subjective Encounter Date: 09/18/20 Encounter Time: 08:30 Subjective: Mr. Barnes was in bed at the time of the visit. Reports soreness around the incision sites and dizziness with mobilization. Denies shortness of breath, chest pain, palpitations, nausea, and vomiting. Has not passed gas or had a bowel movement yet. - Objective Vital Signs & Weight: Vital Signs (12 hours) Temp Pulse Resp BP BP Pulse Ox 09/18/20 08:00 98.2 F 86 132/75 96 09/18/20 03:57 99.0 F 77 14 122/67 95 09/17/20 23:21 98.9 F 78 16 135/71 95 Weight Weight 74.389 kg I&O: 09/17/20 09/18/20 09/19/20 06:59 06:59 06:59 Intake Total 2160 1560 Output Total 850 75 Balance 2160 710 -75 Result Diagrams: 09/18/20 03:42 09/18/20 03:42 Additional Labs: Accuchecks 09/17/20 09/17/20 09/17/20 20:06 13:05 11:27 POC Glucose 163 H 144 H 106 H Hospitalist ROS - Review of Systems Constitutional: denies: fever, weakness Respiratory: denies: cough, dry, shortness of breath Cardiovascular: reports: light headedness (with walking around). denies: chest pain, palpitations Gastrointestinal: reports: abdominal pain (around surgical incisions). denies: nausea, vomiting Genitourinary: denies: dysuria - Medication Medications: Active Medications Generic Name Dose Route Start Last Admin Trade Name Guilherme PRN Reason Stop Dose Admin Duloxetine HCl 60 mg 09/16/20 09:00 09/18/20 07:48 Duloxetine 60 Mg Cap PO 60 mg DAILY GUS Administration Enoxaparin Sodium 40 mg 09/18/20 09:00 09/18/20 09:08 Enoxaparin Sodium 40 Mg/0.4 Ml Syringe SC 40 mg 0900 GUS Administration Famotidine 20 mg 09/17/20 21:00 09/18/20 07:52 Famotidine 20 Mg Tab PO Not Given Q12HR GUS Famotidine 20 mg 09/17/20 21:00 09/18/20 07:48 Famotidine/Pf 20 Mg/2ml Vial SLOW IVP 20 mg Q12HR GUS Administration Ferrous Sulfate 325 mg 09/15/20 08:00 09/18/20 07:47 Ferrous Sulfate 325 Mg Tab PO 325 mg BID-WM GUS Administration Gabapentin 300 mg 09/16/20 09:00 09/18/20 07:53 Gabapentin 300 Mg Cap PO 300 mg QAM GUS Administration Gabapentin 600 mg 09/15/20 21:00 09/17/20 20:48 Gabapentin 300 Mg Cap PO 600 mg HS GUS Administration Ceftriaxone Sodium 2 gm/ 100 mls @ 200 mls/hr 09/15/20 21:00 09/17/20 20:47 Sodium Chloride IVPB 100 mls 2100 GUS Administration Sodium Chloride 1,000 mls @ 120 mls/hr 09/17/20 12:45 09/18/20 05:56 Normal Saline 0.9% IV 1,000 mls .Q8H20M GUS Administration Insulin Human Lispro 0 units 09/14/20 19:42 09/15/20 18:17 Humalog 300 Units/3 Ml Vial SC 3 units .MILD SLIDING SCALE PRN Administration Mild Correctional Scale Ketorolac Tromethamine 15 mg 09/17/20 18:00 09/18/20 05:55 Ketorolac Tromethamine 30 Mg/Ml Vial IVP 09/20/20 18:01 15 mg Q6HR GUS Administration Levetiracetam 750 mg 09/15/20 21:00 09/18/20 07:53 Levetiracetam 500 Mg Tab PO 750 mg BID GUS Administration Pantoprazole Sodium 40 mg 09/15/20 09:00 09/18/20 07:58 Pantoprazole 40 Mg Vial IVP 40 mg DAILY GUS Administration Rosuvastatin Calcium 5 mg 09/15/20 21:00 09/17/20 20:48 Rosuvastatin 5 Mg Tab PO 5 mg HS GUS Administration - Exam General Appearance: NAD Eye: PERRL ENT: normocephalic atraumatic Neck: supple Heart: RRR, no murmur, no gallops Respiratory: CTAB, no wheezes, no rales Gastrointestinal: soft, non-distended, normal bowel sounds, tender to palpation (around incision sites) Extremities: no cyanosis, no clubbing, no edema Extremities - other findings: erythematous 3 cm well demarcated patch on olecranon bursa. Not fluctuant. Psychiatric: normal affect, normal behavior, A&O x 3 Hosp A/P - Plan S/p hemicolectomy - NPO per surgery - awaiting path to return L olecranon Bursitis - improved since yesterday Anemia - will check orthostatics since he's still getting dizzy - Hgb stable at 7.8 Seizure disorder - continue Keppra Agree with medical student. Patient currently on clear liquid tolerating well. Encouraged to ambulate with assistance. Patient's family member states that patient has been dizzy for the past 2 or 3 months. We will continue to monitor H&H. We did try IV iron patient had an adverse reaction we will hold it and just do oral iron.
[2020-09-18] MEDS ORDERED: Iron, Sodium Ferric Gluconate 125 MG in Sodium Chloride 0.9% 100 ML IVPB SCH (10:30)
[2020-09-18] MEDS ORDERED: Acetaminophen 500 MG TAB PO SCH (10:45)
[2020-09-18] MEDS: Rosuvastatin 5 MG TAB PO SCH (20:38)
[2020-09-18] MEDS: cefTRIAXone\\ROCEPHIN 2 GM in Sodium Chloride 0.9% 100 ML IVPB SCH (20:40)
[2020-09-19] MEDS: Ketorolac Tromethamine 30 MG/ML VIAL IVP SCH ×4 (05:19→23:50)
[2020-09-19] MEDS: Sodium Chloride 0.9% 1,000 ML IV SCH (05:20)
[2020-09-19] MEDS: Ferrous Sulfate 325 MG TAB PO SCH ×2 (08:03→18:17)
[2020-09-19] MEDS: levETIRAcetam 500 MG TAB PO SCH ×2 (08:03→20:10)
[2020-09-19] MEDS: Famotidine 20 MG TAB PO SCH ×2 (08:03→20:10)
[2020-09-19] MEDS: DULoxetine 60 MG CAP PO SCH (08:03)
[2020-09-19] MEDS: Gabapentin 300 MG CAP PO SCH ×2 (08:04→20:10)
[2020-09-19] MEDS: Famotidine/PF 20 mg/2ml Vial SLOW IVP SCH ×2 (08:04→20:13)
[2020-09-19] MEDS: Pantoprazole 40 MG VIAL IVP SCH (08:04)
--- NOTE | 2020-09-19 09:26 | PRG ---
DATE OF SERVICE: 09/19/2020 SUBJECTIVE: The patient is feeling much better. He still has some right-sided abdominal pain, but it is not bad. He is tolerating clear liquids well. He is passing flatus. OBJECTIVE: VITAL SIGNS: On examination, his temperature is 98.2, pulse 80, blood pressure 123/74. GENERAL: He is awake and alert. ABDOMEN: Looks good, healing well. There are no hernias or infection. ASSESSMENT: Doing well. PLAN: Full liquid diet, Hep-Lock IV. Home soon. Job ID: [id number]
[2020-09-19] MEDS: Enoxaparin Sodium 40 MG/0.4 ML SYRINGE SC SCH (09:40)
[2020-09-19] MEDS: HumaLOG 300 UNITS/3 ML VIAL SC PRN (12:19)
[2020-09-19] MEDS: Rosuvastatin 5 MG TAB PO SCH (20:10)
[2020-09-19] MEDS: cefTRIAXone\\ROCEPHIN 2 GM in Sodium Chloride 0.9% 100 ML IVPB SCH (20:11)
[2020-09-20] MEDS: Ketorolac Tromethamine 30 MG/ML VIAL IVP SCH ×3 (05:10→17:48)
[2020-09-20 07:33] LABS: Anion Gap 11 mmol/L (10-20); BUN (Urea Nitrogen) 6 mg/dL (8.4-25.7); Calc. Creatinine Clearance 115 mL/min (70-130); Carbon Dioxide 25 mmol/L (22-29); Chloride 106 mmol/L (98-107); Glucose 120 mg/dL (70-105); Magnesium 2.1 mg/dL (1.6-2.6); Sodium 138 mmol/L (136-145)
--- NOTE | 2020-09-20 07:46 | PDOC.HOSPP ---
- Subjective Encounter Date: 09/19/20 Encounter Time: 10:30 Subjective: Patient up in bed no complaints. - Objective Vital Signs & Weight: Vital Signs (12 hours) Temp Pulse Resp BP BP Pulse Ox 09/20/20 07:04 97.8 F 75 16 121/76 96 09/19/20 19:56 98.6 F 73 16 130/75 95 Weight Weight 164 lb I&O: 09/19/20 09/20/20 09/21/20 06:59 06:59 06:59 Intake Total 3840 720 Output Total 75 Balance 3765 720 Result Diagrams: 09/18/20 03:42 09/20/20 06:57 Additional Labs: Accuchecks 09/20/20 09/19/20 09/19/20 06:18 20:02 15:51 POC Glucose 118 H 115 H 164 H 09/19/20 10:54 POC Glucose 180 H Hospitalist ROS - Review of Systems Cardiovascular: denies: chest pain, palpitations, orthopnea, paroxysmal noc. dyspnea, edema, light headedness, other Gastrointestinal: denies: nausea, vomiting, abdominal pain, diarrhea, constipation, melena, hematochezia, other Genitourinary: denies: dysuria, frequency, incontinence, hematuria, retention, other - Medication Medications: Active Medications Generic Name Dose Route Start Last Admin Trade Name Freq PRN Reason Stop Dose Admin Acetaminophen 650 mg 09/14/20 18:07 09/19/20 20:10 Acetaminophen 325 Mg Tab PO 650 mg Q4H PRN Administration Headache/Fever/Mild Pain (1-3) Duloxetine HCl 60 mg 09/16/20 09:00 09/19/20 08:03 Duloxetine 60 Mg Cap PO 60 mg DAILY GUS Administration Enoxaparin Sodium 40 mg 09/18/20 09:00 09/19/20 09:40 Enoxaparin Sodium 40 Mg/0.4 Ml Syringe SC 40 mg 0900 GUS Administration Famotidine 20 mg 09/17/20 21:00 09/19/20 20:10 Famotidine 20 Mg Tab PO 20 mg Q12HR GUS Administration Famotidine 20 mg 09/17/20 21:00 09/19/20 20:13 Famotidine/Pf 20 Mg/2ml Vial SLOW IVP Not Given Q12HR [facility] Ferrous Sulfate 325 mg 09/15/20 08:00 09/19/20 18:17 Ferrous Sulfate 325 Mg Tab PO 325 mg BID-WM GUS Administration Gabapentin 300 mg 09/16/20 09:00 09/19/20 08:04 Gabapentin 300 Mg Cap PO 300 mg QAM GUS Administration Gabapentin 600 mg 09/15/20 21:00 09/19/20 20:10 Gabapentin 300 Mg Cap PO 600 mg HS GUS Administration Ceftriaxone Sodium 2 gm/ 100 mls @ 200 mls/hr 09/15/20 21:00 09/19/20 20:11 Sodium Chloride IVPB 100 mls 2100 GUS Administration Insulin Human Lispro 0 units 09/14/20 19:42 09/19/20 12:19 Humalog 300 Units/3 Ml Vial SC 2 units .MILD SLIDING SCALE PRN Administration Mild Correctional Scale Ketorolac Tromethamine 15 mg 09/17/20 18:00 09/20/20 05:10 Ketorolac Tromethamine 30 Mg/Ml Vial IVP 09/20/20 18:01 15 mg Q6HR GUS Administration Levetiracetam 750 mg 09/15/20 21:00 09/19/20 20:10 Levetiracetam 500 Mg Tab PO 750 mg BID GUS Administration Pantoprazole Sodium 40 mg 09/15/20 09:00 09/19/20 08:04 Pantoprazole 40 Mg Vial IVP 40 mg DAILY GUS Administration Rosuvastatin Calcium 5 mg 09/15/20 21:00 09/19/20 20:10 Rosuvastatin 5 Mg Tab PO 5 mg HS GUS Administration Sodium Chloride 10 ml 09/19/20 21:00 09/19/20 20:11 Flush - Normal Saline 10 Ml Syringe IVF 10 ml Q12HR GUS Administration - Exam Neck: negative: supple, symmetric, no JVD, no thyromegaly, no lymphadenopathy, no carotid bruit, JVD Heart: negative: RRR, no murmur, no gallops, no rubs, normal peripheral pulses, irregular, diminshed peripheral pulses, murmur present, II/IV, III/IV Respiratory: negative: CTAB, no wheezes, no rales, no ronchi, normal chest expansion, no tachypnea, normal percussion, rales, rhonchi, tachypneic, wheezes Hosp A/P - Plan S/p hemicolectomy - NPO per surgery - awaiting path to return L olecranon Bursitis - improved since yesterday Anemia - will check orthostatics since he's still getting dizzy - Hgb stable at 7.8 Seizure disorder - continue Christian Agree with medical student. Patient currently on clear liquid tolerating well. Encouraged to ambulate with assistance. Patient's family member states that patient has been dizzy for the past 2 or 3 months. We will continue to monitor H&H. We did try IV iron patient had an adverse reaction we will hold it and just do oral iron. 09/19 patient doing well diet advanced tolerating well patient had a bowel movement. Possible discharge if okay with surgery in a.m. Will check labs in the morning.
[2020-09-20 07:47] LABS: #Eosinphils 0.5 thou/uL (0.0-0.7); #Lymphocytes 1.2 thou/uL (1.20-3.40); #Monocytes 0.6 thou/uL (0.11-0.59); #Neutrophils 6.2 thou/uL (1.40-6.50); %Basophils 0.3 % (0.0-1.0); %Eosinophils 5.5 % (0.0-10.0); %Lymphocytes 13.7 % (21.0-51.0); %Monocytes 6.9 % (0.0-10.0); %Neutrophils 73.6 % (42.0-75.0); Anisocytosis MARKED = >30 cells (100X) (0-5/hpf); Elliptocytes MODERATE= 6-15 cells (100X) (0-1/hpf); Hemoglobin 8.5 g/dL (14.0-18.0); Hypochromia MODERATE=16-30 cells (100X) (0-5/hpf); MDiff Complete? YES; Mean Corpuscular HGB CONC 28.9 g/dL (32.0-36.0); Mean Corpuscular Hemoglobin 18.7 pg (27.0-31.0); Mean Corpuscular Volume 64.9 fL (78.0-98.0); Mean Platelet Volume 6.1 fL (7.4-10.4); Microcytosis MODERATE=15-30 cells (100X) (0-5/hpf); Platelet Count 437 thou/uL (130-400); Platelet Morphology Comment Appears Adequate; Polychromasia SLIGHT = 2-3 cells (100X) (0-2/hpf); RBC Distribution Width 30.5 % (11.5-14.5); Red Blood Cell (RBC) Count 4.53 mill/uL (4.70-6.10); Schistocytes SLIGHT = 2-5 cells (100X) (0-1/hpf); Tear Drops SLIGHT = 2-5 cells (100X) (0-1/hpf); White Blood Cell (WBC) Count 8.5 thou/uL (4.8-10.8)
[2020-09-20] MEDS: Ferrous Sulfate 325 MG TAB PO SCH ×2 (08:41→17:47)
[2020-09-20] MEDS: DULoxetine 60 MG CAP PO SCH (08:42)
[2020-09-20] MEDS: Famotidine 20 MG TAB PO SCH ×2 (08:43→21:17)
[2020-09-20] MEDS: Famotidine/PF 20 mg/2ml Vial SLOW IVP SCH ×2 (08:44→21:17)
[2020-09-20] MEDS: Gabapentin 300 MG CAP PO SCH ×2 (08:44→21:18)
[2020-09-20] MEDS: Enoxaparin Sodium 40 MG/0.4 ML SYRINGE SC SCH (08:50)
[2020-09-20] MEDS: Pantoprazole 40 MG VIAL IVP SCH (08:52)
[2020-09-20] MEDS: levETIRAcetam 500 MG TAB PO SCH ×2 (08:52→21:18)
[2020-09-20] MEDS: HumaLOG 300 UNITS/3 ML VIAL SC PRN (11:58)
[2020-09-20] MEDS: Acetaminophen/Codeine 30-300mg Tablet PO PRN (12:36)
--- NOTE | 2020-09-20 14:56 | PDOC.HOSPP ---
- Subjective Encounter Date: 09/20/20 Encounter Time: 10:30 Subjective: Patient up in bed complains of right flank pain and right hip pain - Objective Vital Signs & Weight: Vital Signs (12 hours) Temp Pulse Resp BP BP BP BP 09/20/20 12:27 108 H 18 130/84 09/20/20 12:22 110 H 20 127/81 09/20/20 12:17 111 H 20 126/81 09/20/20 08:00 09/20/20 07:42 117/71 111/79 121/76 09/20/20 07:04 97.8 F 75 16 121/76 Pulse Ox 09/20/20 12:27 09/20/20 12:22 09/20/20 12:17 97 09/20/20 08:00 96 09/20/20 07:42 09/20/20 07:04 96 Weight Weight 164 lb I&O: 09/19/20 09/20/20 09/21/20 06:59 06:59 06:59 Intake Total 3840 720 Output Total 75 Balance 3765 720 Result Diagrams: 09/20/20 06:57 09/20/20 06:57 Additional Labs: Accuchecks 09/20/20 09/20/20 09/20/20 12:24 10:59 06:18 POC Glucose 158 H 186 H 118 H 09/19/20 09/19/20 20:02 15:51 POC Glucose 115 H 164 H Hospitalist ROS - Review of Systems Cardiovascular: denies: chest pain, palpitations, orthopnea, paroxysmal noc. dyspnea, edema, light headedness, other Gastrointestinal: denies: nausea, vomiting, abdominal pain, diarrhea, constip ation, melena, hematochezia, other Musculoskeletal: reports: leg pain - Medication Medications: Active Medications Generic Name Dose Route Start Last Admin Trade Name Freq PRN Reason Stop Dose Admin Acetaminophen 650 mg 09/14/20 18:07 09/19/20 20:10 Acetaminophen 325 Mg Tab PO 650 mg Q4H PRN Administration Headache/Fever/Mild Pain (1-3) Acetaminophen/Codeine Phosphate 1 tab 09/20/20 12:26 09/20/20 12:36 Acetaminophen/Codeine 30-300mg Tablet PO 1 tab Q6H PRN Administration Pain Duloxetine HCl 60 mg 09/16/20 09:00 09/20/20 08:42 Duloxetine 60 Mg Cap PO 60 mg DAILY GUS Administration Enoxaparin Sodium 40 mg 09/18/20 09:00 09/20/20 08:50 Enoxaparin Sodium 40 Mg/0.4 Ml Syringe SC 40 mg 0900 GUS Administration Famotidine 20 mg 09/17/20 21:00 09/20/20 08:43 Famotidine 20 Mg Tab PO 20 mg Q12HR GUS Administration Famotidine 20 mg 09/17/20 21:00 09/20/20 08:44 Famotidine/Pf 20 Mg/2ml Vial SLOW IVP Not Given Q12HR GUS Ferrous Sulfate 325 mg 09/15/20 08:00 09/20/20 08:41 Ferrous Sulfate 325 Mg Tab PO 325 mg BID-WM GUS Administration Gabapentin 300 mg 09/16/20 09:00 09/20/20 08:44 Gabapentin 300 Mg Cap PO 300 mg QAM GUS Administration Gabapentin 600 mg 09/15/20 21:00 09/19/20 20:10 Gabapentin 300 Mg Cap PO 600 mg HS GUS Administration Ceftriaxone Sodium 2 gm/ 100 mls @ 200 mls/hr 09/15/20 21:00 09/19/20 20:11 Sodium Chloride IVPB 100 mls 2100 GUS Administration Insulin Human Lispro 0 units 09/14/20 19:42 09/20/20 11:58 Humalog 300 Units/3 Ml Vial SC 2 units .MILD SLIDING SCALE PRN Administration Mild Correctional Scale Ketorolac Tromethamine 15 mg 09/17/20 18:00 09/20/20 11:59 Ketorolac Tromethamine 30 Mg/Ml Vial IVP 09/20/20 18:01 15 mg Q6HR GUS Administration Levetiracetam 750 mg 09/15/20 21:00 09/20/20 08:52 Levetiracetam 500 Mg Tab PO 750 mg BID GUS Administration Pantoprazole Sodium 40 mg 09/15/20 09:00 09/20/20 08:52 Pantoprazole 40 Mg Vial IVP 40 mg DAILY GUS Administration Rosuvastatin Calcium 5 mg 09/15/20 21:00 09/19/20 20:10 Rosuvastatin 5 Mg Tab PO 5 mg HS GUS Administration Sodium Chloride 10 ml 09/19/20 21:00 09/20/20 08:57 Flush - Normal Saline 10 Ml Syringe IVF 10 ml Q12HR GUS Administration - Exam Neck: negative: supple, symmetric, no JVD, no thyromegaly, no lymphadenopathy, no carotid bruit, JVD Heart: negative: RRR, no murmur, no gallops, no rubs, normal peripheral pulses, irregular, diminshed peripheral pulses, murmur present, II/IV, III/IV Respiratory: negative: CTAB, no wheezes, no rales, no ronchi, normal chest expansion, no tachypnea, normal percussion, rales, rhonchi, tachypneic, wheezes Gastrointestinal: negative: soft, non-tender, non-distended, normal bowel sounds, no palpable masses, no hepatomegaly, no splenomegaly, no bruit, no guarding, no rigidity, tender to palpation, distended, diminished bowl sounds, voluntary guarding Hosp A/P - Plan S/p hemicolectomy - NPO per surgery - awaiting path to return L olecranon Bursitis - improved since yesterday Anemia - will check orthostatics since he's still getting dizzy - Hgb stable at 7.8 Seizure disorder - continue Keppra Agree with medical student. Patient currently on clear liquid tolerating well. Encouraged to ambulate with assistance. Patient's family member states that patient has been dizzy for the past 2 or 3 months. We will continue to monitor H&H. We did try IV iron patient had an adverse reaction we will hold it and just do oral iron. 09/19 patient doing well diet advanced tolerating well patient had a bowel movement. Possible discharge if okay with surgery in a.m. Will check labs in the morning. 09/20 patient's sister was at the bedside stated that he sneezed and then started having pain to his right neck area and right hip area. She also stated that patient became very diaphoretic however never passed out. Patient has a history of seizures however his seizures he does pass out. Will give patient some pain medications to see if that relieves the flank pain. Patient probably pulled a muscle. We will continue to monitor. Possible discharge tomorrow if patient does well. Oncology consulted given patient's pathology report.
--- NOTE | 2020-09-20 16:07 | CON ---
DATE OF CONSULTATION: REASON FOR CONSULT: Colon cancer. HISTORY OF PRESENT ILLNESS: Mr. Barnes is a pleasant 60-year-old gentleman who was seen by his primary care for weakness. He had been having bright red blood in his BMs over the past several weeks. He was found to be anemic with a hemoglobin of 6.1, and was sent to the emergency room for evaluation. He did receive 2 units of blood. He was evaluated by GI and underwent endoscopy. There was an ascending colon mass consistent with malignant tumor. He had a CT chest, abdomen, pelvis that showed the asymmetrical wall mass at the anterior medial wall of the ascending colon. He had a 3 mm hypodensity in segment 8 of the right hepatic lobe of the liver. It was not too small to characterize. There was no other evidence of metastatic disease. He then underwent a right hemicolectomy. Biopsy stated invasive moderately differentiated adenocarcinoma. The tumor was 4.8 cm in greatest dimension and invaded the muscularis propria with pericolonic tissue. There was zero of 26 lymph nodes positive for cancer. All margins were negative. The patient is recovering nicely and able to take p.o. He has had a bowel movement and is ready for discharge soon. PAST MEDICAL HISTORY: 1. Diabetes mellitus. 2. CVA. 3. Hypertension. 4. History of hemorrhoids. 5. Anxiety. PAST SURGICAL HISTORY: 1. Right hemicolectomy. 2. Colonoscopy. ALLERGIES: NO KNOWN DRUG ALLERGIES. HOME MEDICATIONS: 1. Crestor. 2. Cymbalta. 3. Ecotrin. 4. Iron. 5. Gabapentin. 6. Lisinopril. 7. Metformin. 8. Protonix. 9. Keppra. 10. Bock. 11. Zofran. FAMILY HISTORY: Unknown cancer history. SOCIAL HISTORY: Lives with his mother. No alcohol, tobacco, or illicit drug use. REVIEW OF SYSTEMS: A 10-point review of systems is negative. PHYSICAL EXAMINATION: VITAL SIGNS: Temperature 97.8, pulse is 75, respiratory rate 16, blood pressure is 117/71, he is 96% on room air. GENERAL: A well-developed, well-nourished male, in no acute distress. HEENT: Normocephalic, atraumatic. Pupils are equal and reactive to light. He has poor dentition. NECK: Supple. CV: Regular. LUNGS: Clear anterior. ABDOMEN: Soft. Bowel sounds are positive. NEUROLOGIC: Nonfocal. PERTINENT LABORATORY DATA AND X-RAYS: WBCs are 8.5, hemoglobin 8.5, hematocrit 29.4, platelet count 437,000, he has 73% neutrophils, 13% lymphocytes. PT 13.5, INR 1. Sodium 138, potassium 4.0, chloride is 106, CO2 is 25, BUN is 6, creatinine 0.73, calcium 9, iron is 10, TIBC 444, ferritin 3, bilirubin 0.7, AST is 18, ALT is 7, alkaline phosphatase is 79, serum total protein 6.9, albumin 3.5, globulin 3.4. B12 normal. CEA 0.75. COVID PCR negative. Radiology, per HPI. ASSESSMENT: 1. Adenocarcinoma of the colon. 2. Iron deficient anemia secondary to malignancy. 3. Reactive thrombocytosis from iron deficiency. DISCUSSION: The patient appears to have a stage IIB adenocarcinoma of the colon, assuming the small 3 mm hypodensity in the liver is not malignant. This lesion is too small for biopsy and would unlikely show on PET. We will send tumor for MSI and immunohistochemical staining. The patient has been given a dose of IV iron. He should continue oral iron as tolerated. He can go home when he has been cleared by surgery to follow up in our clinic in the next couple of weeks to discuss the results of the mutational studies and determine if he would benefit from chemotherapy treatment. This was discussed with the patient who verbalized understanding. We will be happy to see him in the outpatient setting. Thank you for the consult. Job ID: [id number] MTDD
[2020-09-20] MEDS: cefTRIAXone\\ROCEPHIN 2 GM in Sodium Chloride 0.9% 100 ML IVPB SCH (21:17)
[2020-09-20] MEDS: Rosuvastatin 5 MG TAB PO SCH (21:20)
[2020-09-21] MEDS: Ferrous Sulfate 325 MG TAB PO SCH ×2 (08:49→16:57)
[2020-09-21] MEDS: DULoxetine 60 MG CAP PO SCH (08:50)
[2020-09-21] MEDS: Famotidine 20 MG TAB PO SCH ×2 (08:50→20:03)
[2020-09-21] MEDS: Gabapentin 300 MG CAP PO SCH ×2 (08:51→20:02)
[2020-09-21] MEDS: levETIRAcetam 500 MG TAB PO SCH ×2 (08:54→20:03)
[2020-09-21] MEDS: Pantoprazole 40 MG VIAL IVP SCH (08:56)
[2020-09-21] MEDS: Famotidine/PF 20 mg/2ml Vial SLOW IVP SCH ×2 (08:57→20:08)
[2020-09-21] MEDS: Enoxaparin Sodium 40 MG/0.4 ML SYRINGE SC SCH (09:01)
[2020-09-21] MEDS ORDERED: Sodium Chloride 0.9% 500 ML IV SCH ×2 (09:15→09:30)
[2020-09-21 10:38] LABS: #Basophils 0.1 thou/uL (0.0-0.2); #Eosinphils 0.4 thou/uL (0.0-0.7); #Lymphocytes 1.1 thou/uL (1.20-3.40); #Monocytes 0.7 thou/uL (0.11-0.59); #Neutrophils 9.2 thou/uL (1.40-6.50); %Basophils 0.5 % (0.0-1.0); %Eosinophils 3.5 % (0.0-10.0); %Lymphocytes 9.3 % (21.0-51.0); %Monocytes 5.9 % (0.0-10.0); %Neutrophils 80.7 % (42.0-75.0); Hemoglobin 8.9 g/dL (14.0-18.0); Mean Corpuscular HGB CONC 29.2 g/dL (32.0-36.0); Mean Corpuscular Hemoglobin 18.8 pg (27.0-31.0); Mean Corpuscular Volume 64.3 fL (78.0-98.0); Mean Platelet Volume 6.6 fL (7.4-10.4); Platelet Count 506 thou/uL (130-400); RBC Distribution Width 30.9 % (11.5-14.5); Red Blood Cell (RBC) Count 4.77 mill/uL (4.70-6.10); White Blood Cell (WBC) Count 11.4 thou/uL (4.8-10.8)
[2020-09-21 11:37] LABS: Anisocytosis MARKED = >30 cells (100X) (0-5/hpf); Band 3 % (5-11); Eosinophils 6 % (0-10); Hypochromia SLIGHT = 6-15 cells (100X) (0-5/hpf); Lymphocytes 3 % (21-51); MDiff Complete? YES; Microcytosis MODERATE=15-30 cells (100X) (0-5/hpf); Monocytes 2 % (0-10); Neutrophil 85 % (42-75); Ovalocytes MODERATE= 6-15 cells (100X) (0-1/hpf); Platelet Morphology Comment Appears Increased; Polychromasia MODERATE = 3-4 cells (100X) (0-2/hpf); Reactive Lymphocytes 1 % (0-10)
[2020-09-21] MEDS ORDERED: Sodium Chloride 0.9% 1,000 ML IV SCH (12:00)
[2020-09-21] MEDS: Acetaminophen/Codeine 30-300mg Tablet PO PRN (14:34)
[2020-09-21] MEDS ORDERED: Ketorolac Tromethamine 30 MG/ML VIAL IVP SCH (15:15)
[2020-09-21] MEDS ORDERED: Midodrine HCl 5 MG TAB PO SCH (18:15)
[2020-09-21] MEDS: Rosuvastatin 5 MG TAB PO SCH (20:03)
[2020-09-21] MEDS: cefTRIAXone\\ROCEPHIN 2 GM in Sodium Chloride 0.9% 100 ML IVPB SCH (20:04)
--- NOTE | 2020-09-22 07:57 | PDOC.HOSPP ---
- Subjective Encounter Date: 09/21/20 Encounter Time: 17:00 Subjective: pt up in bed wants to go home but he has positive orthostatic blood pressure. - Objective Vital Signs & Weight: Vital Signs (12 hours) Temp Pulse Resp BP BP BP BP 09/21/20 23:20 97.7 F 121 H 16 132/72 09/21/20 19:58 131 H 16 88/54 L 09/21/20 19:56 122 H 16 105/65 09/21/20 19:54 97.7 F 118 H 16 132/73 Pulse Ox 09/21/20 23:20 94 L 09/21/20 19:58 95 09/21/20 19:56 94 L 09/21/20 19:54 93 L Weight Weight 164 lb I&O: 09/21/20 09/22/20 09/23/20 06:59 06:59 06:59 Intake Total 750 3330 Output Total 150 Balance 750 3180 Result Diagrams: 09/21/20 10:08 09/20/20 06:57 Additional Labs: Accuchecks 09/21/20 09/21/20 09/21/20 20:43 17:01 11:27 POC Glucose 152 H 146 H 134 H Hospitalist ROS - Review of Systems Cardiovascular: denies: chest pain, palpitations, orthopnea, paroxysmal noc. dyspnea, edema, light headedness, other Gastrointestinal: denies: nausea, vomiting, abdominal pain, diarrhea, constipation, melena, hematochezia, other Genitourinary: denies: dysuria, frequency, incontinence, hematuria, retention, other - Medication Medications: Active Medications Generic Name Dose Route Start Last Admin Trade Name Markoq PRN Reason Stop Dose Admin Acetaminophen 650 mg 09/14/20 18:07 09/19/20 20:10 Acetaminophen 325 Mg Tab PO 650 mg Q4H PRN Administration Headache/Fever/Mild Pain (1-3) Acetaminophen/Codeine Phosphate 1 tab 09/20/20 12:26 09/21/20 14:34 Acetaminophen/Codeine 30-300mg Tablet PO 1 tab Q6H PRN Administration Pain Duloxetine HCl 60 mg 09/16/20 09:00 09/21/20 08:50 Duloxetine 60 Mg Cap PO 60 mg DAILY GUS Administration Enoxaparin Sodium 40 mg 09/18/20 09:00 09/21/20 09:01 Enoxaparin Sodium 40 Mg/0.4 Ml Syringe SC 40 mg 0900 GUS Administration Famotidine 20 mg 09/17/20 21:00 09/21/20 20:03 Famotidine 20 Mg Tab PO 20 mg Q12HR GUS Administration Famotidine 20 mg 09/17/20 21:00 09/21/20 20:08 Famotidine/Pf 20 Mg/2ml Vial SLOW IVP Not Given Q12HR GUS Ferrous Sulfate 325 mg 09/15/20 08:00 09/21/20 16:57 Ferrous Sulfate 325 Mg Tab PO 325 mg BID-WM GUS Administration Gabapentin 300 mg 09/16/20 09:00 09/21/20 08:51 Gabapentin 300 Mg Cap PO 300 mg QAM GUS Administration Gabapentin 600 mg 09/15/20 21:00 09/21/20 20:02 Gabapentin 300 Mg Cap PO 600 mg HS GUS Administration Ceftriaxone Sodium 2 gm/ 100 mls @ 200 mls/hr 09/15/20 21:00 09/21/20 20:04 Sodium Chloride IVPB 100 mls 2100 GUS Administration Insulin Human Lispro 0 units 09/14/20 19:42 09/20/20 11:58 Humalog 300 Units/3 Ml Vial SC 2 units .MILD SLIDING SCALE PRN Administration Mild Correctional Scale Levetiracetam 750 mg 09/15/20 21:00 09/21/20 20:03 Levetiracetam 500 Mg Tab PO 750 mg BID GUS Administration Pantoprazole Sodium 40 mg 09/15/20 09:00 09/21/20 08:56 Pantoprazole 40 Mg Vial IVP 40 mg DAILY GUS Administration Rosuvastatin Calcium 5 mg 09/15/20 21:00 09/21/20 20:03 Rosuvastatin 5 Mg Tab PO 5 mg HS GUS Administration Sodium Chloride 10 ml 09/19/20 21:00 09/21/20 20:08 Flush - Normal Saline 10 Ml Syringe IVF 10 ml Q12HR GUS Administration - Exam Neck: negative: supple, symmetric, no JVD, no thyromegaly, no lymphadenopathy, no carotid bruit, JVD Heart: negative: RRR, no murmur, no gallops, no rubs, normal peripheral pulses, irregular, diminshed peripheral pulses, murmur present, II/IV, III/IV Respiratory: negative: CTAB, no wheezes, no rales, no ronchi, normal chest expansion, no tachypnea, normal percussion, rales, rhonchi, tachypneic, wheezes Hosp A/P - Plan S/p hemicolectomy - NPO per surgery - awaiting path to return L olecranon Bursitis - improved since yesterday Anemia - will check orthostatics since he's still getting dizzy - Hgb stable at 7.8 Seizure disorder - continue Skinnyppra Agree with medical student. Patient currently on clear liquid tolerating well. Encouraged to ambulate with assistance. Patient's family member states that patient has been dizzy for the past 2 or 3 months. We will continue to monitor H&H. We did try IV iron patient had an adverse reaction we will hold it and just do oral iron. 09/19 patient doing well diet advanced tolerating well patient had a bowel movement. Possible discharge if okay with surgery in a.m. Will check labs in the morning. 09/20 patient's sister was at the bedside stated that he sneezed and then started having pain to his right neck area and right hip area. She also stated that patient became very diaphoretic however never passed out. Patient has a history of seizures however his seizures he does pass out. Will give patient some pain medications to see if that relieves the flank pain. Patient probably pulled a muscle. We will continue to monitor. Possible discharge tomorrow if patient does well. Oncology consulted given patient's pathology report. 09/21 pt has significant orthostatic blood pressure with symptoms. He was given a total of 1.5L of ns without any response. will give him one unit of blood and see how he does. if he does not improve will get echo. will check random cortisol and tsh. will also give one dose of midodrine.
[2020-09-22] MEDS: DULoxetine 60 MG CAP PO SCH (08:48)
[2020-09-22] MEDS: levETIRAcetam 500 MG TAB PO SCH ×2 (08:48→21:18)
[2020-09-22] MEDS: Midodrine HCl 5 MG TAB PO SCH ×2 (08:49→15:24)
[2020-09-22] MEDS: Famotidine 20 MG TAB PO SCH ×2 (08:49→21:18)
[2020-09-22] MEDS: Ferrous Sulfate 325 MG TAB PO SCH ×2 (08:50→18:32)
[2020-09-22] MEDS: Famotidine/PF 20 mg/2ml Vial SLOW IVP SCH ×2 (08:50→21:22)
[2020-09-22] MEDS: Pantoprazole 40 MG VIAL IVP SCH (08:51)
[2020-09-22] MEDS: Enoxaparin Sodium 40 MG/0.4 ML SYRINGE SC SCH (08:52)
[2020-09-22] MEDS: Gabapentin 300 MG CAP PO SCH ×2 (08:57→21:19)
[2020-09-22 08:59] LABS: #Eosinphils 0.1 thou/uL (0.0-0.7); #Lymphocytes 0.9 thou/uL (1.20-3.40); #Monocytes 1.3 thou/uL (0.11-0.59); #Neutrophils 15.9 thou/uL (1.40-6.50); %Basophils 0.1 % (0.0-1.0); %Eosinophils 0.4 % (0.0-10.0); %Lymphocytes 4.8 % (21.0-51.0); %Monocytes 6.9 % (0.0-10.0); %Neutrophils 87.8 % (42.0-75.0); Hemoglobin 10.5 g/dL (14.0-18.0); Mean Corpuscular HGB CONC 29.7 g/dL (32.0-36.0); Mean Corpuscular Hemoglobin 19.4 pg (27.0-31.0); Mean Corpuscular Volume 65.4 fL (78.0-98.0); Mean Platelet Volume 6.5 fL (7.4-10.4); Platelet Count 469 thou/uL (130-400); RBC Distribution Width 30.8 % (11.5-14.5); Red Blood Cell (RBC) Count 5.43 mill/uL (4.70-6.10); White Blood Cell (WBC) Count 18.1 thou/uL (4.8-10.8)
[2020-09-22 09:04] LABS: ALT (SGPT) 8 U/L (8-55); AST (SGOT) 14 U/L (5-34); Albumin 3.4 g/dL (3.5-5.0); Alkaline Phosphatase 70 U/L (40-110); Anion Gap 16 mmol/L (10-20); BUN (Urea Nitrogen) 14 mg/dL (8.4-25.7); Bilirubin, Total 1.6 mg/dL (0.2-1.2); Calc. Creatinine Clearance 101 mL/min (70-130); Carbon Dioxide 19 mmol/L (22-29); Chloride 104 mmol/L (98-107); Globulin 3.8 g/dL (2.4-3.5); Glucose 163 mg/dL (70-105); Magnesium 1.8 mg/dL (1.6-2.6); Phosphorus 3.7 mg/dL (2.3-4.7); Potassium 4.3 mmol/L (3.5-5.1); Protein, Total 7.2 g/dL (6.0-8.3); Sodium 135 mmol/L (136-145)
[2020-09-22 09:09] LABS: Troponin I 0.012 ng/mL (< 0.028)
[2020-09-22] MEDS: Acetaminophen/Codeine 30-300mg Tablet PO PRN ×2 (11:48→21:17)
[2020-09-22 13:11] LABS: Troponin I Less than 0.010 ng/mL (< 0.028)
[2020-09-22] MEDS ORDERED: Ketorolac Tromethamine 30 MG/ML VIAL IVP SCH (16:00)
[2020-09-22 17:54] LABS: Troponin I 0.016 ng/mL (< 0.028)
[2020-09-22] MEDS: Rosuvastatin 5 MG TAB PO SCH (21:18)
--- NOTE | 2020-09-22 22:15 | PDOC.HOSPP ---
- Subjective Encounter Date: 09/22/20 Encounter Time: 09:45 Subjective: Patient continues to be significantly tachycardic. Unclear etiology at this time. - Objective Vital Signs & Weight: Vital Signs (12 hours) Temp Pulse Resp BP BP BP BP 09/22/20 15:36 119 H 112/73 09/22/20 15:34 114 H 123/73 09/22/20 15:30 107 H 132/76 09/22/20 14:32 98.6 F 114 H 20 143/85 H 09/22/20 11:50 97.3 F L 123 H 20 133/77 Pulse Ox 09/22/20 15:36 09/22/20 15:34 09/22/20 15:30 09/22/20 14:32 95 09/22/20 11:50 98 Weight Weight 164 lb I&O: 09/21/20 09/22/20 09/23/20 06:59 06:59 06:59 Intake Total 750 3330 Output Total 150 Balance 750 3180 Result Diagrams: 09/22/20 08:35 09/22/20 08:35 Additional Labs: Accuchecks 09/22/20 09/22/20 09/22/20 20:06 16:07 12:48 POC Glucose 159 H 159 H 166 H Hospitalist ROS - Review of Systems ENT: denies: ear pain, ear discharge, nose pain, nose discharge, nose congestion, mouth pain, mouth swelling, throat pain, throat swelling, other Respiratory: denies: cough, dry, shortness of breath, hemoptysis, SOB with excertion, pleuritic pain, sputum, wheezing, other Cardiovascular: denies: chest pain, palpitations, orthopnea, paroxysmal noc. dyspnea, edema, light headedness, other Gastrointestinal: reports: abdominal pain - Medication Medications: Active Medications Generic Name Dose Route Start Last Admin Trade Name Freq PRN Reason Stop Dose Admin Acetaminophen 650 mg 09/14/20 18:07 09/19/20 20:10 Acetaminophen 325 Mg Tab PO 650 mg Q4H PRN Administration Headache/Fever/Mild Pain (1-3) Acetaminophen/Codeine Phosphate 1 tab 09/20/20 12:26 09/22/20 21:17 Acetaminophen/Codeine 30-300mg Tablet PO 1 tab Q6H PRN Administration Pain Duloxetine HCl 60 mg 09/16/20 09:00 09/22/20 08:48 Duloxetine 60 Mg Cap PO 60 mg DAILY GUS Administration Enoxaparin Sodium 40 mg 09/18/20 09:00 09/22/20 08:52 Enoxaparin Sodium 40 Mg/0.4 Ml Syringe SC 40 mg 0900 GUS Administration Famotidine 20 mg 09/17/20 21:00 09/22/20 21:18 Famotidine 20 Mg Tab PO 20 mg Q12HR GUS Administration Famotidine 20 mg 09/17/20 21:00 09/22/20 21:22 Famotidine/Pf 20 Mg/2ml Vial SLOW IVP Not Given Q12HR GUS Ferrous Sulfate 325 mg 09/15/20 08:00 09/22/20 18:32 Ferrous Sulfate 325 Mg Tab PO 325 mg BID-WM GUS Administration Gabapentin 300 mg 09/16/20 09:00 09/22/20 08:57 Gabapentin 300 Mg Cap PO 300 mg QAM GUS Administration Gabapentin 600 mg 09/15/20 21:00 09/22/20 21:19 Gabapentin 300 Mg Cap PO 600 mg HS GUS Administration Insulin Human Lispro 0 units 09/14/20 19:42 09/20/20 11:58 Humalog 300 Units/3 Ml Vial SC 2 units .MILD SLIDING SCALE PRN Administration Mild Correctional Scale Levetiracetam 750 mg 09/15/20 21:00 09/22/20 21:18 Levetiracetam 500 Mg Tab PO 750 mg BID GUS Administration Pantoprazole Sodium 40 mg 09/15/20 09:00 09/22/20 08:51 Pantoprazole 40 Mg Vial IVP Not Given DAILY GUS Rosuvastatin Calcium 5 mg 09/15/20 21:00 09/22/20 21:18 Rosuvastatin 5 Mg Tab PO 5 mg HS GUS Administration Sodium Chloride 10 ml 09/17/20 12:38 09/22/20 16:55 Flush - Normal Saline 10 Ml Syringe IVF 10 ml PRN PRN Administration Saline Flush Sodium Chloride 10 ml 09/19/20 21:00 09/22/20 21:23 Flush - Normal Saline 10 Ml Syringe IVF 10 ml Q12HR GUS Administration - Exam Neck: negative: supple, symmetric, no JVD, no thyromegaly, no lymphadenopathy, no carotid bruit, JVD Heart: negative: RRR, no murmur, no gallops, no rubs, normal peripheral pulses, irregular, diminshed peripheral pulses, murmur present, II/IV, III/IV Respiratory: negative: CTAB, no wheezes, no rales, no ronchi, normal chest expansion, no tachypnea, normal percussion, rales, rhonchi, tachypneic, wheezes Gastrointestinal: soft, normal bowel sounds Gastrointestinal - other findings: Mild tenderness to right lower quadrant around the incision area Hosp A/P - Plan S/p hemicolectomy - NPO per surgery - awaiting path to return L olecranon Bursitis - improved since yesterday Anemia - will check orthostatics since he's still getting dizzy - Hgb stable at 7.8 Seizure disorder - continue Skinnyppra Agree with medical student. Patient currently on clear liquid tolerating well. Encouraged to ambulate with assistance. Patient's family member states that patient has been dizzy for the past 2 or 3 months. We will continue to monitor H&H. We did try IV iron patient had an adverse reaction we will hold it and just do oral iron. 09/19 patient doing well diet advanced tolerating well patient had a bowel movement. Possible discharge if okay with surgery in a.m. Will check labs in the morning. 09/20 patient's sister was at the bedside stated that he sneezed and then started having pain to his right neck area and right hip area. She also stated that patient became very diaphoretic however never passed out. Patient has a history of seizures however his seizures he does pass out. Will give patient some pain medications to see if that relieves the flank pain. Patient probably pulled a muscle. We will continue to monitor. Possible discharge tomorrow if patient does well. Oncology consulted given patient's pathology report. 09/21 pt has significant orthostatic blood pressure with symptoms. He was given a total of 1.5L of ns without any response. will give him one unit of blood and see how he does. if he does not improve will get echo. will check random cortisol and tsh. will also give one dose of midodrine. 09/22 we will get an EKG, will transfer patient to telemetry. We will continue the midodrine. TSH is low, cortisol normal. Patient's H&H is stable. He is got significant leukocytosis however no fever. If patient continues to be tachycardic we will get a CT chest to rule out PE. Patient has been up walking around. Echo ordered pending results.
[2020-09-23] MEDS: Acetaminophen/Codeine 30-300mg Tablet PO PRN (03:26)
[2020-09-23 08:07] VITALS: BP 121/75; TEMP 97.9
[2020-09-23] MEDS ORDERED: Cyanocobalamin (Vitamin B-12) 1,000 MCG TAB PO SCH (09:00)
[2020-09-23] MEDS ORDERED: Midodrine HCl 5 MG TAB PO SCH (09:00)
[2020-09-23 09:09] LABS: ALT (SGPT) 10 U/L (8-55); AST (SGOT) 14 U/L (5-34); Albumin 3.1 g/dL (3.5-5.0); Alkaline Phosphatase 69 U/L (40-110); Anion Gap 14 mmol/L (10-20); BUN (Urea Nitrogen) 19 mg/dL (8.4-25.7); Bilirubin, Total 1.5 mg/dL (0.2-1.2); Calc. Creatinine Clearance 113 mL/min (70-130); Calcium 9.1 mg/dL (7.8-10.44); Carbon Dioxide 22 mmol/L (22-29); Chloride 102 mmol/L (98-107); Globulin 3.8 g/dL (2.4-3.5); Glucose 128 mg/dL (70-105); Potassium 4.3 mmol/L (3.5-5.1); Protein, Total 6.9 g/dL (6.0-8.3); Sodium 134 mmol/L (136-145)
[2020-09-23 09:13] LABS: #Eosinphils 0.2 thou/uL (0.0-0.7); #Lymphocytes 0.7 thou/uL (1.20-3.40); #Monocytes 0.9 thou/uL (0.11-0.59); #Neutrophils 6.1 thou/uL (1.40-6.50); %Basophils 0.2 % (0.0-1.0); %Eosinophils 2.7 % (0.0-10.0); %Lymphocytes 8.4 % (21.0-51.0); %Monocytes 11.1 % (0.0-10.0); %Neutrophils 77.5 % (42.0-75.0); Hemoglobin 9.9 g/dL (14.0-18.0); Mean Corpuscular HGB CONC 30.3 g/dL (32.0-36.0); Mean Corpuscular Hemoglobin 20.2 pg (27.0-31.0); Mean Corpuscular Volume 66.6 fL (78.0-98.0); Mean Platelet Volume 7.6 fL (7.4-10.4); Platelet Count 405 thou/uL (130-400); RBC Distribution Width 30.4 % (11.5-14.5); Red Blood Cell (RBC) Count 4.91 mill/uL (4.70-6.10); White Blood Cell (WBC) Count 7.8 thou/uL (4.8-10.8)
[2020-09-23] MEDS: Pantoprazole 40 MG VIAL IVP SCH (09:50)
[2020-09-23] MEDS: Famotidine 20 MG TAB PO SCH (09:50)
[2020-09-23] MEDS: Gabapentin 300 MG CAP PO SCH (09:51)
[2020-09-23] MEDS: levETIRAcetam 500 MG TAB PO SCH (09:52)
[2020-09-23] MEDS: DULoxetine 60 MG CAP PO SCH (09:52)
[2020-09-23] MEDS: Ferrous Sulfate 325 MG TAB PO SCH (09:53)
[2020-09-23] MEDS: Famotidine/PF 20 mg/2ml Vial SLOW IVP SCH (09:53)
[2020-09-23] MEDS: Enoxaparin Sodium 40 MG/0.4 ML SYRINGE SC SCH (11:10)
--- NOTE | 2020-09-23 12:03 | CT ---
CT PULMONARY ANGIOGRAM WITH IV CONTRAST AND 3D POSTPROCESSING: Date: 09/23/2020 HISTORY: Recent bowel resection for colon cancer. Tachycardia. FINDINGS: There is good contrast opacification of the pulmonary arterial vasculature without filling defects to suggest pulmonary embolism. The thoracic aorta is well opacified without aneurysm or dissection. No pleural or pericardial effusions are seen. There are atelectatic changes at the lung base. No pneumot horaces, lobar consolidation, or lung masses are noted. Upper abdominal tomograms demonstrate free ai r and free fluid, likely from recent surgery. There are degenerative changes in the spine. IMPRESSION: 1. No CT evidence of pulmonary embolism. 2. Free air and fluid in the abdomen is likely postop. Clinical correlation is recommended. POS: OFF
[2020-09-23] MEDS ORDERED: Iopamidol-370 76% 500 ML 1 ML ONE (13:46)
--- NOTE | 2020-09-23 14:44 | PDOC.DS.DS ---
Provider - Provider Date of Admission: 09/15/20 14:03 Date of Discharge: 09/23/20 Admitting Provider: Suhail Llanes MD Consultations: General Surgery, Oncology Primary Care Physician: Ainsley Alas DO Course - Hospital Course Hospital Course: Patient is a very pleasant 60-year-old male who initially presented to the hospital for bright blood per rectum. Patient at this time underwent a colonoscopy which indicated erythematous gastritis in ascending colon mass consistent with malignant tumors. At this time surgery was consulted and patient underwent a laparoscopic hand-assisted right hemicolectomy. Patient was seen by oncology asked to follow-up with them outpatient. We will stay was complicated with orthostatic hypotension and tachycardia. Patient at this time received 1 unit of blood and IV fluids. Patient had an echocardiogram which indicated an EF of 50 to 60%. Patient also had a CTA to rule out PE which was negative. His orthostatics did improve he did get a few doses of midodrine. Patient's sister was at the bedside was updated about this and discussed that if he continues to have this at home he needs to take his as needed midodrine and also follow-up with primary I have stopped his lisinopril. Also he will hold on his Metformin for the next 48 hours since he had contrast. Patient underwent a CT chest abdomen pelvis which indicated 3 mm hypodense within the segment 8 of the right hepatic lobe. Mild aneurysm dilation up to 3.3 cm, healing right lateral sixth rib fracture. Patient's pathology did indicate invasive moderately differently adenocarcinoma tumor invades through muscularis propria into the pericolonic tissue 26 lymph nodes uninvolved. Resuscitation Status: 09/14/20 18:07 Resuscitation Status Routine Co-Sign Provider: Resuscitation Status: FULL: Full Resuscitation Discussed with: pt - Labs Lab Results: 09/23/20 08:21 09/23/20 08:21 Abnormal Lab Results - Last 48 hrs 09/14/20 15:03: Crossmatch See Detail 09/21/20 13:30: Crossmatch See Detail 09/22/20 08:35: TSH 3rd Generation 0.2175 L 09/22/20 08:35: Sodium 135 L, Carbon Dioxide 19 L, Total Bilirubin 1.6 H, Albumin 3.4 L, Globulin 3.8 H, Albumin/Globulin Ratio 0.9 L 09/22/20 08:35: WBC 18.1 H, Hgb 10.5 L, Hct 35.5 L, MCV 65.4 L, MCH 19.4 L, MCHC 29.7 L, RDW 30.8 H, Plt Count 469 H, MPV 6.5 L, Neutrophils % 87.8 H, Lymphocytes % 4.8 L, Neutrophils # 15.9 H, Lymphocytes # 0.9 L, Monocytes # 1.3 H 09/23/20 08:21: Sodium 134 L, Total Bilirubin 1.5 H, Albumin 3.1 L, Globulin 3.8 H, Albumin/Globulin Ratio 0.8 L 09/23/20 08:21: Hgb 9.9 L, Hct 32.7 L, MCV 66.6 L, MCH 20.2 L, MCHC 30.3 L, RDW 30.4 H, Plt Count 405 H, Neutrophils % 77.5 H, Lymphocytes % 8.4 L, Monocytes % 11.1 H, Lymphocytes # 0.7 L, Monocytes # 0.9 H Microbiology - Entire Visit 09/14/20 14:53 Stool - Pending Stool Occult Blood (ESMER) - Final - Physical Exam Vitals: Vital Signs (12 hours) Temp Pulse Resp BP BP BP Pulse Ox 09/23/20 08:00 95 09/23/20 07:58 97.9 F 97 16 119/70 104/66 121/75 95 09/23/20 03:26 98.1 F 106 H 14 129/76 94 L Weight Weight 155 lb 9.6 oz Physical Exam: The patient was seen and examined on the day of discharge. Plan - Discharge Medications Prescriptions: HYDROcodone/Acetaminophen [[place] 5-325 Tablet] 1 - 2 each PO Q6HR PRN 7 Days #30 tablet PRN Reason: Pain Midodrine HCl [ProAmatine] 2.5 mg PO DAILY #5 tab Ondansetron [Zofran ODT] 4 mg PO Q4HR PRN 7 Days #10 tab PRN Reason: Nausea/Vomiting Home Medications: Medication Instructions Recorded Confirmed Type levETIRAcetam [Keppra] 750 mg PO BID #0 tab 06/28/16 09/14/20 Rx Pantoprazole [Protonix] 40 mg PO DAILY 09/14/20 09/14/20 History metFORMIN HCl [Metformin HCl] 1,000 mg PO BID 09/14/20 09/14/20 History Aspirin [Ecotrin Low Strength] 1 tab PO DAILY 09/15/20 09/15/20 History DULoxetine [Cymbalta] 1 cap PO DAILY 09/15/20 09/15/20 History Ferrous Sulfate 1 tab PO DAILY 09/15/20 09/15/20 History Gabapentin 1 cap PO QAM 09/15/20 09/15/20 History Gabapentin 2 cap PO HS 09/15/20 09/15/20 History Rosuvastatin [Crestor] 1 tab PO HS 09/15/20 09/15/20 History Ferrous Sulfate [Feosol] 325 mg PO BID-WM tab 09/20/20 Rx HYDROcodone/Acetaminophen [[place] 1 - 2 each PO Q6HR PRN 7 Days #30 09/20/20 Rx 5-325 Tablet] tablet Ondansetron [Zofran ODT] 4 mg PO Q4HR PRN 7 Days #10 tab 09/20/20 Rx Midodrine HCl [ProAmatine] 2.5 mg PO DAILY #5 tab 09/23/20 Rx Allergies: No Known Allergies Allergy (Verified 12/31/19 12:58) - Discharge Instructions Discharge Instructions:: please drink water since you had contrast for the ct chest. PLEASE DO NOT TAKE METFORMIN FOR THE NEXT 48HOURS SINCE YOU HAD CONTRAST FOR THE CT SCAN. I HAVE STOPPED YOUR LISINOPRIL (BLOOD PRESSURE) MEDICATION SINCE YOUR BLOOD PRESSURE HAS BEEN LOW. FOCUS: Transition from Acute Care after Discharge GOAL: Successful transition to care in the community YOUR TASKS: (1) review all information outlined in your discharge packet (2) follow any instructions outlined in your discharge packet (3) contact your primary care provider if you have questions or need add itional assistance See patient discharge instruction sheet for detailed teaching. Patient verbalizes understanding of medications and is able to verbalize follow-up care. See Discharge Plan for additional discharge information. Patient secured in private vehicle prior to departure. Activity:: Activity as Tolerated Additional Dietary Instructions:: fiber restricted diet - Follow up Plan Referrals: Wayne Joyner MD [Active] - 10/08/20 2:00 pm ( [facility] [address], [place] [address]) Ainsley Alas, [Primary Care Provider] - 7 Days (Please follow up with your PCP within 7 days) Obey Frye Jr, MD [Active] - 14 Days (Please call the office and schedule an appointment ) Disposition: HOME Quality - Care Measures CORE MEASURES:: N/A
--- NOTE | 2020-09-24 08:42 | DIS ---
DATE OF ADMISSION: 09/15/2020 DATE OF DISCHARGE: 09/23/2020 DISCHARGE DIAGNOSES: 1. Right colon cancer. 2. Blood loss anemia. 3. History of cerebrovascular accident. 4. Diabetes. 5. Hypertension. PROCEDURES DURING ADMISSION: Colonoscopy, esophagogastroduodenoscopy, and laparoscopic right hemicolectomy. HOSPITAL COURSE: The patient was admitted with GI bleed and anemia. He was transfused a couple units of blood. GI was consulted. EGD and colonoscopy performed. There was a mass in the right colon that was positive for adenocarcinoma. General Surgery was consulted. A right hemicolectomy performed. Postoperatively, he has done well. He is tolerating full liquids well. His bowels are functioning well. He is afebrile. His pain is minimal. Discharged home on hydrocodone and Zofran, will follow up with me in 2 weeks. Job ID: [id number]
--- NOTE | 2020-09-26 13:02 | PQF ---
CLINICAL DOCUMENTATION CLARIFICATION FORM: Dear : Obey Frye Jr, MD Date / Time: 09/26/2020 Please exercise your independent, professional judgment in responding to the clarification form. Clinical indicators are provided on the bottom of this form for your review Please check appropriate box(es): to clarify the etiology of GI bleed [ ] GI Bleed due to gastritis [ ] GI Bleed due to colon cancer [ ] GI Bleed due to gastritis and colon cancer [ ] Other diagnosis (Please specify if any) [ ] Unable to determine Physician Signature: Date/Time: For continuity of documentation, please document condition throughout progress notes and discharge summary. Thank You To be completed by CDI/Coding staff for physician review: Present Clinical Indicators - Signs / Symptoms / Labs Results and Location in Medical Record [x] Stomach had mild erythematous gastritis in the antrum OP note on 09/16 [x] GI bleed-s/p 2 units Prbc Hospitalist PN on 09/15 [x] Right colon caner OP note on 09/17 [x] Hematochezia, iron deficiency anemia Consult on 09/15 Present Risk Factors Results and Location in Medical Record [x] Symptomatic anemia H&P pm 09/14 [ ] Present Treatments Results and Location in Medical Record [x] EGD and colonoscopy with biopsy OP note on 09/16 [x] Leukocyte RBC - transfused Transfusions on 09/14 [x] Laproscopic hand assisted right hemicolectomy OP note on 09/17 [ ] CDS/Watchguard Signature: AAS Phone #: Date/Time: 09/26/2020 This is a permanent part of the Medical Record [facility]
== END 2020-09-23 15:22 | disposition home or self-care (01) | DRG 330 ==
LOC: ERS 14:27 → ONC 16:43 → OBSVTOIN 09-15 14:03 → 2NO 09-22 14:26
PROVIDERS: ADMIT Internal Medicine; ATTEND Internal Medicine
PROC: 30233N1 Transfusion of Nonautologous Red Blood Cells into Peripheral Vein, Percutaneous Approach (ICD-10-PCS; 2020-09-14)
PROC: 0DB98ZX Excision of Duodenum, Via Natural or Artificial Opening Endoscopic, Diagnostic (ICD-10-PCS; principal; 2020-09-16)
PROC: 0DBK8ZX Excision of Ascending Colon, Via Natural or Artificial Opening Endoscopic, Diagnostic (ICD-10-PCS; 2020-09-16)
PROC: 0DTF0ZZ Resection of Right Large Intestine, Open Approach (ICD-10-PCS; 2020-09-17)
DX: C18.2 Malignant neoplasm of ascending colon (principal); K92.2 Gastrointestinal hemorrhage, unspecified; F41.9 Anxiety disorder, unspecified; M71.122 Other infective bursitis, left elbow; E11.9 Type 2 diabetes mellitus without complications; G40.909 Epilepsy, unspecified, not intractable, without status epilepticus; G89.29 Other chronic pain; D47.3 Essential (hemorrhagic) thrombocythemia; I95.1 Orthostatic hypotension; K29.70 Gastritis, unspecified, without bleeding; M25.422 Effusion, left elbow; I10 Essential (primary) hypertension; Z79.84 Long term (current) use of oral hypoglycemic drugs; Z79.899 Other long term (current) drug therapy; Z86.73 Personal history of transient ischemic attack (TIA), and cerebral infarction without residual deficits; Z79.82 Long term (current) use of aspirin; Z90.49 Acquired absence of other specified parts of digestive tract; D50.0 Iron deficiency anemia secondary to blood loss (chronic)
CPT/HCPCS: 36415; 36416; 36430; 71260; 71275; 74177; 76999; 80048; 80053; 81001; 81479; 82274; 82378; 82533; 82607; 82728; 83540; 83550; 83735; 84100; 84439; 84443; 84484; 85025; 85060; 85610; 85652; 85730; 86140; 86850; 86900; 86901; 87635; 88305; 88309; 88312; 88361; 88374; 93005; 93010; 93306; 99285; C9113; G0378; J0694; J0696; J1100; J1650; J1885; J2405; J2704; J2916; J3010; J3490; P9016; Q9967; S0020; S0028; U0003

== ENCOUNTER 2023-05-26 08:54 | Outpatient (CLI) | payer MEDICARE ==
[2023-05-26] MEDS ORDERED: Iopamidol-370 76% 500 ML MDV (1 ML CHARGE) ONE (09:35)
== END 2023-05-26 08:55 | disposition home or self-care (01) ==
LOC: BICCT 08:54
PROVIDERS: ATTEND Family Medicine
DX: C18.9 Malignant neoplasm of colon, unspecified (principal); R10.12 Left upper quadrant pain
CPT/HCPCS: 74177; Q9967

== ENCOUNTER 2024-03-08 06:15 | Day surgery (SDC) | payer MEDICARE ==
[2024-03-04 13:38] VITALS: BMI 25.8
[2024-03-08] MEDS ORDERED: PROPOFOL 40 ML ONE (07:19)
[2024-03-08] MEDS ORDERED: Lidocaine 1% PF 5 ML VIAL ONE (07:19)
[2024-03-08] MEDS ORDERED: PHENYLEPHRINE-NS 100 MCG/ML 10 ML SYRINGE ONE (07:33)
[2024-03-08] MEDS ORDERED: GLYCOPYRROLATE/PF 0.2 MG/ML VIAL ONE (07:33)
[2024-03-08] MEDS ORDERED: PROPOFOL 20 ML ONE (07:51)
== END 2024-03-08 08:50 | disposition home or self-care (01) ==
LOC: SDC 06:15
PROVIDERS: ATTEND Internal Medicine Gastroenterology
PROC: 0DJD8ZZ Inspection of Lower Intestinal Tract, Via Natural or Artificial Opening Endoscopic (ICD-10-PCS; principal; 2024-03-08)
DX: Z12.11 Encounter for screening for malignant neoplasm of colon (principal); K64.8 Other hemorrhoids; K62.89 Other specified diseases of anus and rectum; C18.9 Malignant neoplasm of colon, unspecified; I10 Essential (primary) hypertension; E78.5 Hyperlipidemia, unspecified; F32.A Depression, unspecified; M19.90 Unspecified osteoarthritis, unspecified site; E11.42 Type 2 diabetes mellitus with diabetic polyneuropathy; Z98.0 Intestinal bypass and anastomosis status
CPT/HCPCS: G0105; J3490; J2704